=== PATIENT | female | born 1940 | race Caucasian/White ===

== ENCOUNTER 2017-04-03 21:06 | Inpatient (IN) | payer MEDICARE, BC ==
[~2017-04-03] VITALS: Ht 165.1 cm; Wt 61.2 kg
[~2017-04-03 21:06] MED LIST: ALBU90OI; ALBU90OI6 INH; BAYER CHEWABLE81 MG PO; BUDESONIDE8.43 ML NS; COUGH MED; Crutch1 EACH MISC; DELTASONE20 MG PO; DILTIAZEM PO; DOXA4 PO; ESCI10; HYDGUAL120 PO; IBUP600 PO; LISI5 PO; LORA1 PO; LOTREL; METO50 PO; MIRT15 PO; MOXI400; Omeprazole20 M1 PO; Ventolin/Prove6.7 GM INH; XARELTO15 MG PO
[2017-04-03 21:34] LABS: BASOPHILS ABSOLUTE AUTO 0.02 K/mm3 (0.00-0.23); BASOPHILS PERCENT AUTO 0 % (0-2); EOSINOPHILS ABSOLUTE AUTO 0.24 K/mm3 (0.00-0.68); EOSINOPHILS PERCENT AUTO 4 % (0-6); Hematocrit 34.7 % (33.0-51.0); Hemoglobin 11.5 g/dL (11.5-16.0); IMMATURE GRAN ABSOLUTE AUTO 0.01 K/mm3 (0.00-0.10); IMMATURE GRAN PERCENT AUTO 0 % (0-1); LYMPHOCYTES ABSOLUTE AUTO 1.88 K/mm3 (0.84-5.20); LYMPHOCYTES PERCENT AUTO 30 % (21-46); MONOCYTES ABSOLUTE AUTO 0.73 K/mm3 (0.16-1.47); MONOCYTES PERCENT AUTO 12 % (4-13); Mean Corpuscular HGB 32.8 pg (26.0-34.0); Mean Corpuscular HGB Conc 33.1 g/dL (31.5-36.5); Mean Corpuscular Volume 99 fL (80-100); Mean Platelet Volume 9.2 fL (9.1-12.4); NEUTROPHILS ABSOLUTE AUTO 3.42 K/mm3 (1.96-9.15); NEUTROPHILS PERCENT AUTO 54 % (41-73); Platelet Count 380 K/mm3 (150-400); RDW Coefficient Variation 14.1 % (11.7-14.2); RDW Standard Deviation 50.2 fL (35.1-46.3); Red Blood Cell Count 3.51 M/mm3 (3.80-5.20)
[2017-04-03 21:34] LABS: Base Excess Venous 5.9 mmol/L; Bicarbonate Venous 30.1 mmol/L (24.0-30.0); PCO2 Venous 30.5 mmHg (38-42); PO2 Venous 134 mmHg (38-42); pH Blood Venous 7.57 (7.34-7.37)
[2017-04-03 21:55] LABS: Alanine Aminotransfer (ALT/SGP 22 U/L (12-78); Albumin, Blood 2.8 g/dL (3.4-5.0); Albumin/Globulin Ratio 0.7 (0.8-1.8); Alk Phos 132 U/L (50-136); Anion Gap 7 mmol/L (6-16); Aspartate Aminotrans (AST/SGOT 19 U/L (12-37); Bilirubin, Total 0.3 mg/dL (0.1-1.0); Blood Urea Nitrogen 18 mg/dL (8-24); Bun/Creatinine Ratio 26.5 (12.0-20.0); CO2, Blood 31 mmol/L (21-32); Calcium, Blood 8.9 mg/dL (8.5-10.1); Chloride, Blood 98 mmol/L (98-108); Creatinine, Blood 0.68 mg/dL (0.40-1.00); Glomerular Filtration Rate >60 (60-); Glucose, Blood 97 mg/dL (70-99); Potassium, Blood 4.7 mmol/L (3.5-5.5); Sodium, Blood 136 mmol/L (136-145); Total Protein, Blood 6.8 g/dL (6.4-8.2); Troponin I 0.015 ng/mL (0.000-0.040)
[2017-04-03 22:55] LABS: Influenza A Negative (NEGATIVE); Influenza B Negative (NEGATIVE)
[2017-04-04 06:04] LABS: BASOPHILS ABSOLUTE AUTO 0.01 K/mm3 (0.00-0.23); BASOPHILS PERCENT AUTO 0 % (0-2); EOSINOPHILS ABSOLUTE AUTO 0.17 K/mm3 (0.00-0.68); EOSINOPHILS PERCENT AUTO 3 % (0-6); Hematocrit 32.8 % (33.0-51.0); Hemoglobin 10.5 g/dL (11.5-16.0); IMMATURE GRAN ABSOLUTE AUTO 0.02 K/mm3 (0.00-0.10); IMMATURE GRAN PERCENT AUTO 0 % (0-1); LYMPHOCYTES ABSOLUTE AUTO 1.06 K/mm3 (0.84-5.20); LYMPHOCYTES PERCENT AUTO 21 % (21-46); MONOCYTES ABSOLUTE AUTO 0.77 K/mm3 (0.16-1.47); MONOCYTES PERCENT AUTO 15 % (4-13); Mean Corpuscular HGB 32.6 pg (26.0-34.0); Mean Platelet Volume 9.3 fL (9.1-12.4); NEUTROPHILS ABSOLUTE AUTO 3.06 K/mm3 (1.96-9.15); NEUTROPHILS PERCENT AUTO 60 % (41-73); Platelet Count 401 K/mm3 (150-400); RDW Coefficient Variation 14.4 % (11.7-14.2); RDW Standard Deviation 53.3 fL (35.1-46.3); Red Blood Cell Count 3.22 M/mm3 (3.80-5.20); White Blood Cell Count 5.09 K/mm3 (4.00-11.30)
[2017-04-04 06:05] LABS: Mean Corpuscular Volume 102 fL (80-100)
[2017-04-04 06:28] LABS: Alanine Aminotransfer (ALT/SGP 19 U/L (12-78); Albumin, Blood 2.6 g/dL (3.4-5.0); Albumin/Globulin Ratio 0.7 (0.8-1.8); Alk Phos 125 U/L (50-136); Anion Gap 4 mmol/L (6-16); Aspartate Aminotrans (AST/SGOT 17 U/L (12-37); Bilirubin, Total 0.5 mg/dL (0.1-1.0); Blood Urea Nitrogen 16 mg/dL (8-24); Bun/Creatinine Ratio 22.5 (12.0-20.0); CO2, Blood 34 mmol/L (21-32); Calcium, Blood 8.7 mg/dL (8.5-10.1); Chloride, Blood 99 mmol/L (98-108); Creatinine, Blood 0.71 mg/dL (0.40-1.00); Globulin, Blood 3.6 g/dL (2.2-4.0); Glomerular Filtration Rate >60 (60-); Glucose, Blood 109 mg/dL (70-99); Potassium, Blood 4.7 mmol/L (3.5-5.5); Sodium, Blood 137 mmol/L (136-145); Total Protein, Blood 6.2 g/dL (6.4-8.2)
[2017-04-05 05:08] LABS: BASOPHILS PERCENT AUTO 0 % (0-2); EOSINOPHILS PERCENT AUTO 0 % (0-6); Hemoglobin 11.3 g/dL (11.5-16.0); IMMATURE GRAN PERCENT AUTO 0 % (0-1); LYMPHOCYTES ABSOLUTE AUTO 0.53 K/mm3 (0.84-5.20); LYMPHOCYTES PERCENT AUTO 10 % (21-46); MONOCYTES PERCENT AUTO 2 % (4-13); Mean Corpuscular HGB 32.9 pg (26.0-34.0); Mean Corpuscular HGB Conc 32.3 g/dL (31.5-36.5); Mean Corpuscular Volume 102 fL (80-100); Mean Platelet Volume 9.3 fL (9.1-12.4); NEUTROPHILS ABSOLUTE AUTO 4.67 K/mm3 (1.96-9.15); NEUTROPHILS PERCENT AUTO 88 % (41-73); Platelet Count 420 K/mm3 (150-400); RDW Coefficient Variation 14.4 % (11.7-14.2); RDW Standard Deviation 53.2 fL (35.1-46.3); Red Blood Cell Count 3.43 M/mm3 (3.80-5.20)
[2017-04-05 05:36] LABS: Magnesium, Blood 1.7 mg/dL (1.6-2.4)
[2017-04-05 06:03] LABS: Anion Gap 7 mmol/L (6-16); Blood Urea Nitrogen 30 mg/dL (8-24); Bun/Creatinine Ratio 36.1 (12.0-20.0); CO2, Blood 30 mmol/L (21-32); Calcium, Blood 8.9 mg/dL (8.5-10.1); Chloride, Blood 97 mmol/L (98-108); Creatinine, Blood 0.83 mg/dL (0.40-1.00); Glomerular Filtration Rate >60 (60-); Glucose, Blood 190 mg/dL (70-99); Potassium, Blood 4.9 mmol/L (3.5-5.5); Sodium, Blood 134 mmol/L (136-145)
[2017-04-06 05:25] LABS: Anion Gap 5 mmol/L (6-16); Blood Urea Nitrogen 30 mg/dL (8-24); Bun/Creatinine Ratio 34.3 (12.0-20.0); CO2, Blood 32 mmol/L (21-32); Calcium, Blood 8.5 mg/dL (8.5-10.1); Chloride, Blood 97 mmol/L (98-108); Creatinine, Blood 0.87 mg/dL (0.40-1.00); Glomerular Filtration Rate >60 (60-); Glucose, Blood 145 mg/dL (70-99); Magnesium, Blood 1.8 mg/dL (1.6-2.4); Potassium, Blood 4.3 mmol/L (3.5-5.5); Sodium, Blood 134 mmol/L (136-145)
[2017-04-07 04:16] LABS: Anion Gap 6 mmol/L (6-16); Blood Urea Nitrogen 32 mg/dL (8-24); Bun/Creatinine Ratio 42.4 (12.0-20.0); CO2, Blood 32 mmol/L (21-32); Calcium, Blood 8.6 mg/dL (8.5-10.1); Chloride, Blood 96 mmol/L (98-108); Creatinine, Blood 0.75 mg/dL (0.40-1.00); Glomerular Filtration Rate >60 (60-); Glucose, Blood 139 mg/dL (70-99); Sodium, Blood 134 mmol/L (136-145)
[2017-04-07 04:23] LABS: Digoxin (Lanoxin) 1.28 ug/mL (0.80-2.00)
[2017-04-08] MEDS ORDERED: ACET325 PO (10:01)
[2017-04-08] MEDS ORDERED: ROBITUSSIN COU237 ML PO (10:02)
[2017-04-08] MEDS ORDERED: DIGOX125 MCG PO (10:03)
[2017-04-08] MEDS ORDERED: DELTASONE20 MG PO (10:05)
[2017-04-08] MEDS ORDERED: CEFP200 PO (10:10)
[2017-04-08] MEDS ORDERED: ACIDOPHILUS1 EAC1 PO (10:12)
[2017-04-08] MEDS ORDERED: LEVO750 PO (10:14)
[2017-05-15] MEDS ORDERED: Amiodarone HCl400 MG PO (10:40)
[2017-05-15] MEDS ORDERED: AMLO5 PO (10:40)
[2017-08-31] MEDS ORDERED: QVAR REDIHALE10.6 G1 INH (13:13)
[2017-08-31] MEDS ORDERED: MAGNESIUM400 MG PO (13:13)
[2017-08-31] MEDS ORDERED: MAGOXI400 PO (13:14)
[2017-10-23] MEDS ORDERED: DILT120 PO (05:21)
[2017-10-23] MEDS ORDERED: QVAR REDIHALE10.6 G1 INH (05:22)
[2017-10-25] MEDS ORDERED: DILT120 PO (13:37)
[2017-12-20] MEDS ORDERED: PRED10 PO (12:11)
[2018-01-30] MEDS ORDERED: Augmentin 875-1 EACH PO (09:25)
== END 2017-04-08 11:34 | disposition home health service (06) | DRG 193 ==
LOC: ER 21:06 → ICUW 04-04 02:50 → PCU 04-04 16:30
PROVIDERS: Emergency Medicine; Internal Medicine
PROC: 5A09357 Assistance with Respiratory Ventilation, Less than 24 Consecutive Hours, Continuous Positive Airway Pressure (ICD-10-PCS; principal; 2017-04-04)
DX: J18.9 Pneumonia, unspecified organism (principal); J96.21 Acute and chronic respiratory failure with hypoxia; G62.9 Polyneuropathy, unspecified; I50.32 Chronic diastolic (congestive) heart failure; I48.91 Unspecified atrial fibrillation; Z99.81 Dependence on supplemental oxygen; J91.8 Pleural effusion in other conditions classified elsewhere; J44.0 Chronic obstructive pulmonary disease with (acute) lower respiratory infection; J44.1 Chronic obstructive pulmonary disease with (acute) exacerbation; M19.90 Unspecified osteoarthritis, unspecified site; R53.1 Weakness; F41.9 Anxiety disorder, unspecified; I35.1 Nonrheumatic aortic (valve) insufficiency; Z79.01 Long term (current) use of anticoagulants; Z79.82 Long term (current) use of aspirin; Z79.51 Long term (current) use of inhaled steroids; Z79.52 Long term (current) use of systemic steroids; Z79.899 Other long term (current) drug therapy
CPT/HCPCS: 36415; 71045; 71046; 76604; 80048; 80053; 80162; 82803; 83735; 83880; 84484; 85025; 87040; 87804; 93005; 93010; 93970; 94640; 94660; 94760; 94762; 96374; 96376; 97162; 99285; G8978; G8979; J0696; J1956; J2930; J3475; J7050

== ENCOUNTER 2017-04-13 20:44 | Emergency (ER) | payer MEDICARE, BC ==
[~2017-04-13] VITALS: Ht 160 cm; Wt 65.8 kg
[~2017-04-13 20:44] MED LIST changes: +ACET325 PO; +ACIDOPHILUS1 EAC1 PO; +CEFP200 PO; +DIGOX125 MCG PO; +LEVO750 PO; +ROBITUSSIN COU237 ML PO
[2017-04-13 21:48] LABS: BASOPHILS ABSOLUTE AUTO 0.01 K/mm3 (0.00-0.23); BASOPHILS PERCENT AUTO 0 % (0-2); EOSINOPHILS ABSOLUTE AUTO 0.01 K/mm3 (0.00-0.68); EOSINOPHILS PERCENT AUTO 0 % (0-6); Hematocrit 36.2 % (33.0-51.0); Hemoglobin 12.6 g/dL (11.5-16.0); IMMATURE GRAN ABSOLUTE AUTO 0.14 K/mm3 (0.00-0.10); IMMATURE GRAN PERCENT AUTO 1 % (0-1); LYMPHOCYTES ABSOLUTE AUTO 1.06 K/mm3 (0.84-5.20); LYMPHOCYTES PERCENT AUTO 8 % (21-46); MONOCYTES ABSOLUTE AUTO 1.06 K/mm3 (0.16-1.47); MONOCYTES PERCENT AUTO 8 % (4-13); Mean Corpuscular HGB 33.2 pg (26.0-34.0); Mean Corpuscular HGB Conc 34.8 g/dL (31.5-36.5); Mean Platelet Volume 9.3 fL (9.1-12.4); NEUTROPHILS ABSOLUTE AUTO 10.46 K/mm3 (1.96-9.15); NEUTROPHILS PERCENT AUTO 82 % (41-73); Platelet Count 382 K/mm3 (150-400); RDW Coefficient Variation 14.3 % (11.7-14.2); RDW Standard Deviation 50.2 fL (35.1-46.3); Red Blood Cell Count 3.79 M/mm3 (3.80-5.20); White Blood Cell Count 12.74 K/mm3 (4.00-11.30)
[2017-04-13 21:53] LABS: Mean Corpuscular Volume 96 fL (80-100)
[2017-04-13 22:01] LABS: Alanine Aminotransfer (ALT/SGP 57 U/L (12-78); Albumin, Blood 2.8 g/dL (3.4-5.0); Albumin/Globulin Ratio 0.9 (0.8-1.8); Alk Phos 82 U/L (50-136); Anion Gap 4 mmol/L (6-16); Aspartate Aminotrans (AST/SGOT 27 U/L (12-37); Bilirubin, Total 0.4 mg/dL (0.1-1.0); Blood Urea Nitrogen 24 mg/dL (8-24); CO2, Blood 40 mmol/L (21-32); Calcium, Blood 9.2 mg/dL (8.5-10.1); Chloride, Blood 88 mmol/L (98-108); Creatinine, Blood 0.71 mg/dL (0.40-1.00); Glomerular Filtration Rate >60 (60-); Glucose, Blood 106 mg/dL (70-99); Potassium, Blood 4.4 mmol/L (3.5-5.5); Sodium, Blood 132 mmol/L (136-145); Total Protein, Blood 5.8 g/dL (6.4-8.2)
[2017-04-13 22:02] LABS: International Normalized Ratio 1.52
[2017-04-13] MEDS ORDERED: Colace100 MG PO (23:31)
[2017-05-15] MEDS ORDERED: AMLO5 PO (10:40)
[2017-05-15] MEDS ORDERED: Amiodarone HCl400 MG PO (10:40)
[2017-08-31] MEDS ORDERED: MAGNESIUM400 MG PO (13:13)
[2017-08-31] MEDS ORDERED: QVAR REDIHALE10.6 G1 INH (13:13)
[2017-08-31] MEDS ORDERED: MAGOXI400 PO (13:14)
[2017-10-23] MEDS ORDERED: DILT120 PO (05:21)
[2017-10-23] MEDS ORDERED: QVAR REDIHALE10.6 G1 INH (05:22)
[2017-10-25] MEDS ORDERED: DILT120 PO (13:37)
[2017-12-20] MEDS ORDERED: PRED10 PO (12:11)
[2018-01-30] MEDS ORDERED: Augmentin 875-1 EACH PO (09:25)
== END 2017-04-13 23:52 | disposition home or self-care (01) ==
LOC: ER 20:44
PROVIDERS: Emergency Medicine
DX: K59.00 Constipation, unspecified (principal); J44.9 Chronic obstructive pulmonary disease, unspecified; Z79.899 Other long term (current) drug therapy; Z79.52 Long term (current) use of systemic steroids
CPT/HCPCS: 74018; 80053; 82272; 85025; 85610; 85730; 99283

== ENCOUNTER 2017-04-26 06:51 | Emergency (ER) | payer MEDICARE, BC ==
[~2017-04-26] VITALS: Ht 165.1 cm; Wt 59.0 kg
[~2017-04-26 06:51] MED LIST changes: +Colace100 MG PO
[2017-04-26 07:09] LABS: PCO2 Arterial 48.9 mmHg (35-45); PO2 Arterial 85.9 mmHg (80-100); pH Blood Arterial 7.47 (7.35-7.45)
[2017-04-26 07:10] LABS: BASOPHILS ABSOLUTE AUTO 0.02 K/mm3 (0.00-0.23); BASOPHILS PERCENT AUTO 0 % (0-2); EOSINOPHILS ABSOLUTE AUTO 0.22 K/mm3 (0.00-0.68); EOSINOPHILS PERCENT AUTO 2 % (0-6); Hematocrit 29.3 % (33.0-51.0); IMMATURE GRAN ABSOLUTE AUTO 0.04 K/mm3 (0.00-0.10); IMMATURE GRAN PERCENT AUTO 0 % (0-1); LYMPHOCYTES ABSOLUTE AUTO 0.97 K/mm3 (0.84-5.20); LYMPHOCYTES PERCENT AUTO 8 % (21-46); MONOCYTES ABSOLUTE AUTO 0.49 K/mm3 (0.16-1.47); MONOCYTES PERCENT AUTO 4 % (4-13); Mean Corpuscular HGB 32.9 pg (26.0-34.0); Mean Corpuscular HGB Conc 34.1 g/dL (31.5-36.5); Mean Corpuscular Volume 96 fL (80-100); Mean Platelet Volume 9.4 fL (9.1-12.4); NEUTROPHILS ABSOLUTE AUTO 10.15 K/mm3 (1.96-9.15); NEUTROPHILS PERCENT AUTO 85 % (41-73); Platelet Count 286 K/mm3 (150-400); RDW Coefficient Variation 15.7 % (11.7-14.2); RDW Standard Deviation 54.8 fL (35.1-46.3); Red Blood Cell Count 3.04 M/mm3 (3.80-5.20); White Blood Cell Count 11.89 K/mm3 (4.00-11.30)
[2017-04-26 07:32] LABS: Anion Gap 3 mmol/L (6-16); Blood Urea Nitrogen 22 mg/dL (8-24); Bun/Creatinine Ratio 37.6 (12.0-20.0); CO2, Blood 35 mmol/L (21-32); Calcium, Blood 8.9 mg/dL (8.5-10.1); Chloride, Blood 96 mmol/L (98-108); Creatinine, Blood 0.59 mg/dL (0.40-1.00); Glomerular Filtration Rate >60 (60-); Glucose, Blood 104 mg/dL (70-99); Potassium, Blood 4.6 mmol/L (3.5-5.5); Sodium, Blood 134 mmol/L (136-145); Troponin I 0.029 ng/mL (0.000-0.040)
[2017-04-26 07:43] LABS: Digoxin (Lanoxin) 0.95 ug/mL (0.80-2.00)
[2017-04-26 08:01] LABS: International Normalized Ratio 1.21; Prothrombin Time Results 12.7 Sec (9.7-11.5)
[2017-04-26 08:23] LABS: Source, Urine Catheter
[2017-04-26 08:30] LABS: Bilirubin, Urine Neg (Neg); Blood, Urine 2+ (Neg); Glucose Qualitative, Urine Neg (Neg); Ketones, Urine Neg (Neg); Leukocyte Esterase, Urine Neg (Neg); Nitrite, Urine Neg (Neg); Protein, Urine 3+ (Neg); Specific Gravity, Urine 1.015 (1.003-1.022); Urobilinogen, Urine NORM (Normal)
[2017-04-26 08:40] LABS: Appearance, Urine Clear (Clear); Color, Urine Yellow (P-Yellow)
[2017-04-26 08:43] LABS: Squamous Epithelial Cells Few /hpf (Few)
[2017-04-26 08:45] LABS: Calcium Oxalate Crystals Rare /hpf
[2017-04-26 08:48] LABS: White Blood Cells, Urine 0-2 /hpf (0-5)
[2017-04-26 08:50] LABS: Bacteria Mod /hpf
[2017-04-26] MEDS ORDERED: Prednisone20 MG PO (11:18)
[2017-05-15] MEDS ORDERED: Amiodarone HCl400 MG PO (10:40)
[2017-05-15] MEDS ORDERED: AMLO5 PO (10:40)
[2017-08-31] MEDS ORDERED: QVAR REDIHALE10.6 G1 INH (13:13)
[2017-08-31] MEDS ORDERED: MAGNESIUM400 MG PO (13:13)
[2017-08-31] MEDS ORDERED: MAGOXI400 PO (13:14)
[2017-10-23] MEDS ORDERED: DILT120 PO (05:21)
[2017-10-23] MEDS ORDERED: QVAR REDIHALE10.6 G1 INH (05:22)
[2017-10-25] MEDS ORDERED: DILT120 PO (13:37)
[2017-12-20] MEDS ORDERED: PRED10 PO (12:11)
[2018-01-30] MEDS ORDERED: Augmentin 875-1 EACH PO (09:25)
== END 2017-04-26 12:10 | disposition home or self-care (01) ==
LOC: ER 06:51
PROVIDERS: Emergency Medicine
DX: J44.1 Chronic obstructive pulmonary disease with (acute) exacerbation (principal); I48.91 Unspecified atrial fibrillation; F41.9 Anxiety disorder, unspecified; Z79.899 Other long term (current) drug therapy; Z79.52 Long term (current) use of systemic steroids
CPT/HCPCS: 36415; 36600; 71045; 80048; 80162; 81001; 82803; 83605; 83880; 84484; 85025; 85610; 87040; 87086; 93005; 93010; 94644; 96361; 96374; 96375; 99283; J2930; J7030

== ENCOUNTER 2017-05-08 13:07 | Emergency (ER) | payer MEDICARE, BC ==
[~2017-05-08] VITALS: Ht 165.1 cm; Wt 59.0 kg
[~2017-05-08 13:07] MED LIST changes: +Prednisone20 MG PO
[2017-05-15] MEDS ORDERED: Amiodarone HCl400 MG PO (10:40)
[2017-05-15] MEDS ORDERED: AMLO5 PO (10:40)
[2017-08-31] MEDS ORDERED: MAGNESIUM400 MG PO (13:13)
[2017-08-31] MEDS ORDERED: QVAR REDIHALE10.6 G1 INH (13:13)
[2017-08-31] MEDS ORDERED: MAGOXI400 PO (13:14)
[2017-10-23] MEDS ORDERED: DILT120 PO (05:21)
[2017-10-23] MEDS ORDERED: QVAR REDIHALE10.6 G1 INH (05:22)
[2017-10-25] MEDS ORDERED: DILT120 PO (13:37)
[2017-12-20] MEDS ORDERED: PRED10 PO (12:11)
[2018-01-30] MEDS ORDERED: Augmentin 875-1 EACH PO (09:25)
== END 2017-05-08 15:50 | disposition home or self-care (01) ==
LOC: ER 13:07
DX: N64.89 Other specified disorders of breast (principal); I48.91 Unspecified atrial fibrillation; J44.9 Chronic obstructive pulmonary disease, unspecified; Z79.899 Other long term (current) drug therapy; Z87.01 Personal history of pneumonia (recurrent)
CPT/HCPCS: 99282

== ENCOUNTER 2017-05-12 14:23 | Emergency (ER) | payer MEDICARE, BC ==
[~2017-05-12] VITALS: Ht 165.1 cm; Wt 59.0 kg
[2017-05-12] MEDS ORDERED: Amiodarone HCl400 MG PO (14:52)
[2017-05-12] MEDS ORDERED: AMLO5 PO (14:52)
[2017-05-12 15:42] LABS: BASOPHILS ABSOLUTE AUTO 0.01 K/mm3 (0.00-0.23); BASOPHILS PERCENT AUTO 0 % (0-2); EOSINOPHILS PERCENT AUTO 0 % (0-6); Hematocrit 23.3 % (33.0-51.0); Hemoglobin 7.2 g/dL (11.5-16.0); IMMATURE GRAN ABSOLUTE AUTO 0.06 K/mm3 (0.00-0.10); IMMATURE GRAN PERCENT AUTO 1 % (0-1); LYMPHOCYTES ABSOLUTE AUTO 0.55 K/mm3 (0.84-5.20); LYMPHOCYTES PERCENT AUTO 8 % (21-46); MONOCYTES ABSOLUTE AUTO 0.24 K/mm3 (0.16-1.47); MONOCYTES PERCENT AUTO 3 % (4-13); Mean Corpuscular HGB 30.9 pg (26.0-34.0); Mean Corpuscular HGB Conc 30.9 g/dL (31.5-36.5); Mean Corpuscular Volume 100 fL (80-100); Mean Platelet Volume 8.9 fL (9.1-12.4); NEUTROPHILS ABSOLUTE AUTO 6.43 K/mm3 (1.96-9.15); NEUTROPHILS PERCENT AUTO 88 % (41-73); NRBC ABSOLUTE 0.05 K/mm3 (0.00-0.02); NRBC Auto 0.7 /100 WBC (0.0-0.2); Platelet Count 570 K/mm3 (150-400); RDW Coefficient Variation 17.6 % (11.7-14.2); RDW Standard Deviation 61.9 fL (35.1-46.3); Red Blood Cell Count 2.33 M/mm3 (3.80-5.20); White Blood Cell Count 7.29 K/mm3 (4.00-11.30)
[2017-05-12 15:56] LABS: Magnesium, Blood 1.5 mg/dL (1.6-2.4)
[2017-05-12 16:09] LABS: International Normalized Ratio 1.2; Prothrombin Time Results 12.5 Sec (9.7-11.5)
[2017-05-12 16:32] LABS: Anion Gap 8 mmol/L (6-16); Blood Urea Nitrogen 26 mg/dL (8-24); Bun/Creatinine Ratio 33.5 (12.0-20.0); CO2, Blood 31 mmol/L (21-32); Chloride, Blood 99 mmol/L (98-108); Creatinine, Blood 0.78 mg/dL (0.40-1.00); Glomerular Filtration Rate >60 (60-); Glucose, Blood 146 mg/dL (70-99); Sodium, Blood 138 mmol/L (136-145)
[2017-05-12] MEDS ORDERED: DILT180ER PO (16:45)
[2017-05-12] MEDS ORDERED: RHINOCORT ALL8.43 ML (16:46)
[2017-05-12] MEDS ORDERED: ALBU90OI61 INH (16:47)
[2017-05-12] MEDS ORDERED: DIGOX125 MCG PO (16:48)
[2017-05-12] MEDS ORDERED: PRED20 PO (16:49)
[2017-05-12] MEDS ORDERED: EQ SENNA-S TAB1 EACH PO (16:49)
[2017-05-12] MEDS ORDERED: Aspirin EC81 MG (16:50)
[2017-05-15] MEDS ORDERED: Amiodarone HCl400 MG PO (10:40)
[2017-05-15] MEDS ORDERED: AMLO5 PO (10:40)
[2017-08-31] MEDS ORDERED: MAGNESIUM400 MG PO (13:13)
[2017-08-31] MEDS ORDERED: QVAR REDIHALE10.6 G1 INH (13:13)
[2017-08-31] MEDS ORDERED: MAGOXI400 PO (13:14)
[2017-10-23] MEDS ORDERED: DILT120 PO (05:21)
[2017-10-23] MEDS ORDERED: QVAR REDIHALE10.6 G1 INH (05:22)
[2017-10-25] MEDS ORDERED: DILT120 PO (13:37)
[2017-12-20] MEDS ORDERED: PRED10 PO (12:11)
[2018-01-30] MEDS ORDERED: Augmentin 875-1 EACH PO (09:25)
== END 2017-05-12 15:54 | disposition home or self-care (01) ==
LOC: ER 14:23
PROVIDERS: Emergency Medicine
DX: I48.92 Unspecified atrial flutter (principal); I48.91 Unspecified atrial fibrillation; J44.9 Chronic obstructive pulmonary disease, unspecified; Z87.01 Personal history of pneumonia (recurrent); Z87.891 Personal history of nicotine dependence
CPT/HCPCS: 36415; 80048; 83735; 85025; 85610; 93005; 93010; 99283; J0153; J7030

== ENCOUNTER 2017-05-17 08:54 | Inpatient (IN) | payer MEDICARE, BC ==
[~2017-05-17] VITALS: Ht 152.4 cm; Wt 58.2 kg
[~2017-05-17 08:54] MED LIST changes: +ALBU90OI61 INH; +AMLO5 PO; +Amiodarone HCl400 MG PO; +Aspirin EC81 MG; +DILT180ER PO; +EQ SENNA-S TAB1 EACH PO; +PRED20 PO; +RHINOCORT ALL8.43 ML
[2017-05-17 09:20] LABS: BASOPHILS ABSOLUTE AUTO 0.01 K/mm3 (0.00-0.23); BASOPHILS PERCENT AUTO 0 % (0-2); EOSINOPHILS ABSOLUTE AUTO 0.05 K/mm3 (0.00-0.68); EOSINOPHILS PERCENT AUTO 0 % (0-6); Hemoglobin 7.1 g/dL (11.5-16.0); IMMATURE GRAN ABSOLUTE AUTO 0.09 K/mm3 (0.00-0.10); IMMATURE GRAN PERCENT AUTO 1 % (0-1); LYMPHOCYTES ABSOLUTE AUTO 0.93 K/mm3 (0.84-5.20); LYMPHOCYTES PERCENT AUTO 6 % (21-46); MONOCYTES ABSOLUTE AUTO 0.68 K/mm3 (0.16-1.47); MONOCYTES PERCENT AUTO 5 % (4-13); Mean Corpuscular HGB 30.6 pg (26.0-34.0); Mean Corpuscular HGB Conc 30.9 g/dL (31.5-36.5); Mean Corpuscular Volume 99 fL (80-100); Mean Platelet Volume 8.7 fL (9.1-12.4); NEUTROPHILS PERCENT AUTO 88 % (41-73); NRBC ABSOLUTE 0.02 K/mm3 (0.00-0.02); NRBC Auto 0.1 /100 WBC (0.0-0.2); Platelet Count 555 K/mm3 (150-400); RDW Coefficient Variation 17.1 % (11.7-14.2); RDW Standard Deviation 61.2 fL (35.1-46.3); Red Blood Cell Count 2.32 M/mm3 (3.80-5.20); White Blood Cell Count 14.86 K/mm3 (4.00-11.30)
[2017-05-17 09:38] LABS: Alanine Aminotransfer (ALT/SGP 21 U/L (12-78); Albumin, Blood 2.8 g/dL (3.4-5.0); Albumin/Globulin Ratio 0.7 (0.8-1.8); Alk Phos 68 U/L (50-136); Anion Gap 4 mmol/L (6-16); Aspartate Aminotrans (AST/SGOT 12 U/L (12-37); Bilirubin, Total 0.3 mg/dL (0.1-1.0); Blood Urea Nitrogen 22 mg/dL (8-24); Bun/Creatinine Ratio 29.9 (12.0-20.0); CO2, Blood 33 mmol/L (21-32); Calcium, Blood 9.3 mg/dL (8.5-10.1); Chloride, Blood 99 mmol/L (98-108); Creatinine, Blood 0.74 mg/dL (0.40-1.00); Globulin, Blood 4.2 g/dL (2.2-4.0); Glomerular Filtration Rate >60 (60-); Glucose, Blood 132 mg/dL (70-99); Potassium, Blood 4.2 mmol/L (3.5-5.5); Sodium, Blood 136 mmol/L (136-145); Troponin I 0.044 ng/mL (0.000-0.040)
[2017-05-17 10:08] LABS: PO2 Arterial 70.6 mmHg (80-100); pH Blood Arterial 7.42 (7.35-7.45)
[2017-05-18 04:19] LABS: Hematocrit 19.5 % (33.0-51.0); Mean Corpuscular HGB 29.6 pg (26.0-34.0); Mean Corpuscular HGB Conc 30.8 g/dL (31.5-36.5); Mean Platelet Volume 8.5 fL (9.1-12.4); NRBC ABSOLUTE 0.02 K/mm3 (0.00-0.02); NRBC Auto 0.3 /100 WBC (0.0-0.2); Platelet Count 469 K/mm3 (150-400); RDW Coefficient Variation 16.9 % (11.7-14.2); RDW Standard Deviation 58.2 fL (35.1-46.3); Red Blood Cell Count 2.03 M/mm3 (3.80-5.20)
[2017-05-18 04:26] LABS: Mean Corpuscular Volume 96 fL (80-100)
[2017-05-18 04:33] LABS: International Normalized Ratio 1.39; Prothrombin Time Results 14.6 Sec (9.7-11.5)
[2017-05-18 04:44] LABS: Anion Gap 7 mmol/L (6-16); Blood Urea Nitrogen 28 mg/dL (8-24); Bun/Creatinine Ratio 31.3 (12.0-20.0); CO2, Blood 31 mmol/L (21-32); Calcium, Blood 8.9 mg/dL (8.5-10.1); Chloride, Blood 98 mmol/L (98-108); Creatinine, Blood 0.89 mg/dL (0.40-1.00); Glomerular Filtration Rate >60 (60-); Glucose, Blood 128 mg/dL (70-99); Magnesium, Blood 1.5 mg/dL (1.6-2.4); Phosphorus, Blood 3.2 mg/dL (2.5-4.9); Potassium, Blood 4.1 mmol/L (3.5-5.5); Sodium, Blood 136 mmol/L (136-145)
[2017-05-18 11:08] LABS: Percent Saturation 3.9 % (15.0-50.0)
[2017-05-19 04:58] LABS: Hematocrit 26.7 % (33.0-51.0); Hemoglobin 8.5 g/dL (11.5-16.0); Mean Corpuscular HGB 29.9 pg (26.0-34.0); Mean Corpuscular HGB Conc 31.8 g/dL (31.5-36.5); Mean Corpuscular Volume 94 fL (80-100); Mean Platelet Volume 8.6 fL (9.1-12.4); NRBC ABSOLUTE 0.02 K/mm3 (0.00-0.02); NRBC Auto 0.2 /100 WBC (0.0-0.2); Platelet Count 502 K/mm3 (150-400); RDW Coefficient Variation 17.2 % (11.7-14.2); RDW Standard Deviation 58.3 fL (35.1-46.3); Red Blood Cell Count 2.84 M/mm3 (3.80-5.20); White Blood Cell Count 8.57 K/mm3 (4.00-11.30)
[2017-05-19 05:21] LABS: Anion Gap 8 mmol/L (6-16); Blood Urea Nitrogen 35 mg/dL (8-24); Bun/Creatinine Ratio 40.7 (12.0-20.0); CO2, Blood 30 mmol/L (21-32); Chloride, Blood 100 mmol/L (98-108); Creatinine, Blood 0.86 mg/dL (0.40-1.00); Glomerular Filtration Rate >60 (60-); Glucose, Blood 149 mg/dL (70-99); Magnesium, Blood 1.9 mg/dL (1.6-2.4); Potassium, Blood 4.1 mmol/L (3.5-5.5); Sodium, Blood 138 mmol/L (136-145)
[2017-05-20 05:46] LABS: Hematocrit 24.5 % (33.0-51.0); Hemoglobin 7.9 g/dL (11.5-16.0)
[2017-05-20] MEDS ORDERED: Ferrous Sulfat325 M2 PO (10:42)
[2017-05-20] MEDS ORDERED: CEPH500 PO (10:43)
[2017-05-20] MEDS ORDERED: AZIT500 PO (10:43)
[2017-08-31] MEDS ORDERED: MAGNESIUM400 MG PO (13:13)
[2017-08-31] MEDS ORDERED: QVAR REDIHALE10.6 G1 INH (13:13)
[2017-08-31] MEDS ORDERED: MAGOXI400 PO (13:14)
[2017-10-23] MEDS ORDERED: DILT120 PO (05:21)
[2017-10-23] MEDS ORDERED: QVAR REDIHALE10.6 G1 INH (05:22)
[2017-10-25] MEDS ORDERED: DILT120 PO (13:37)
[2017-12-20] MEDS ORDERED: PRED10 PO (12:11)
[2018-01-30] MEDS ORDERED: Augmentin 875-1 EACH PO (09:25)
== END 2017-05-20 12:00 | disposition home or self-care (01) | DRG 193 ==
LOC: ER 08:54 → ERHOLD 10:00 → MEDS 10:00 → EDBEDREQ 10:54 → PCU 13:00 → MEDS 05-19 16:12 → ENPENDDIS 05-20 10:24 → MEDS 05-20 12:00
PROVIDERS: Family Medicine; Internal Medicine
DX: J18.9 Pneumonia, unspecified organism (principal); J96.21 Acute and chronic respiratory failure with hypoxia; G62.9 Polyneuropathy, unspecified; I50.32 Chronic diastolic (congestive) heart failure; I48.2 Chronic atrial fibrillation; E83.42 Hypomagnesemia; D50.9 Iron deficiency anemia, unspecified; F41.9 Anxiety disorder, unspecified; J96.22 Acute and chronic respiratory failure with hypercapnia; I35.1 Nonrheumatic aortic (valve) insufficiency; J44.9 Chronic obstructive pulmonary disease, unspecified; M19.90 Unspecified osteoarthritis, unspecified site; Z79.52 Long term (current) use of systemic steroids; Z87.01 Personal history of pneumonia (recurrent); Z87.891 Personal history of nicotine dependence
CPT/HCPCS: 36415; 36430; 36600; 71045; 80048; 80053; 82728; 82803; 83540; 83550; 83735; 83880; 84100; 84484; 85014; 85018; 85025; 85027; 85610; 85730; 86850; 86900; 86901; 86923; 92960; 93005; 93010; 94640; 94644; 94760; 96365; 96375; 99285; J0456; J0696; J2060; J2930; J3475; J7030; J7050; J7120; P9016

== ENCOUNTER → 2017-08-08 | Outpatient (CLI) | payer MEDICARE, BC ==
[~2017-08-08] MED LIST changes: +AZIT500 PO; +CEPH500 PO; +Ferrous Sulfat325 M2 PO
== END | disposition home or self-care (01) ==
LOC: PLD 16:33 → LAB SHORT 16:33
DX: D48.5 Neoplasm of uncertain behavior of skin (principal)
CPT/HCPCS: 88305

== ENCOUNTER 2017-08-23 23:41 | Emergency (ER) | payer MEDICARE, BC ==
[~2017-08-23] VITALS: Ht 165.1 cm; Wt 59.0 kg
[2017-08-24 00:11] LABS: BASOPHILS ABSOLUTE AUTO 0.06 K/mm3 (0.00-0.23); BASOPHILS PERCENT AUTO 1 % (0-2); EOSINOPHILS ABSOLUTE AUTO 0.29 K/mm3 (0.00-0.68); EOSINOPHILS PERCENT AUTO 3 % (0-6); Hematocrit 35.5 % (33.0-51.0); Hemoglobin 11.3 g/dL (11.5-16.0); IMMATURE GRAN ABSOLUTE AUTO 0.02 K/mm3 (0.00-0.10); IMMATURE GRAN PERCENT AUTO 0 % (0-1); LYMPHOCYTES ABSOLUTE AUTO 2.53 K/mm3 (0.84-5.20); LYMPHOCYTES PERCENT AUTO 30 % (21-46); MONOCYTES ABSOLUTE AUTO 0.81 K/mm3 (0.16-1.47); MONOCYTES PERCENT AUTO 10 % (4-13); Mean Corpuscular HGB 29.6 pg (26.0-34.0); Mean Corpuscular HGB Conc 31.8 g/dL (31.5-36.5); Mean Corpuscular Volume 93 fL (80-100); Mean Platelet Volume 9.4 fL (9.1-12.4); NEUTROPHILS ABSOLUTE AUTO 4.75 K/mm3 (1.96-9.15); NEUTROPHILS PERCENT AUTO 56 % (41-73); Platelet Count 403 K/mm3 (150-400); RDW Coefficient Variation 18.5 % (11.7-14.2); RDW Standard Deviation 63.4 fL (35.1-46.3); Red Blood Cell Count 3.82 M/mm3 (3.80-5.20); White Blood Cell Count 8.46 K/mm3 (4.00-11.30)
[2017-08-24 00:29] LABS: Alanine Aminotransfer (ALT/SGP 25 U/L (12-78); Albumin, Blood 3.6 g/dL (3.4-5.0); Albumin/Globulin Ratio 0.9 (0.8-1.8); Alk Phos 117 U/L (50-136); Anion Gap 8 mmol/L (6-16); Aspartate Aminotrans (AST/SGOT 27 U/L (12-37); Bilirubin, Total 0.1 mg/dL (0.1-1.0); Blood Urea Nitrogen 26 mg/dL (8-24); Bun/Creatinine Ratio 29.8 (12.0-20.0); CO2, Blood 29 mmol/L (21-32); Calcium, Blood 9.6 mg/dL (8.5-10.1); Chloride, Blood 101 mmol/L (98-108); Creatinine, Blood 0.87 mg/dL (0.40-1.00); Globulin, Blood 4.1 g/dL (2.2-4.0); Glomerular Filtration Rate >60 (60-); Glucose, Blood 96 mg/dL (70-99); Potassium, Blood 4.3 mmol/L (3.5-5.5); Sodium, Blood 138 mmol/L (136-145); Total Protein, Blood 7.7 g/dL (6.4-8.2); Troponin I <0.015 ng/mL (0.000-0.040)
== END 2017-08-24 00:43 | disposition home or self-care (01) ==
LOC: ER 23:41
PROVIDERS: Emergency Medicine
DX: I48.91 Unspecified atrial fibrillation (principal); Z79.899 Other long term (current) drug therapy; Z79.2 Long term (current) use of antibiotics; Z87.01 Personal history of pneumonia (recurrent); Z87.891 Personal history of nicotine dependence
CPT/HCPCS: 36415; 80053; 84484; 85025; 93005; 93010; 99283

== ENCOUNTER 2017-09-01 06:33 | Day surgery (SDC) | payer MEDICARE, BC ==
[~2017-09-01] VITALS: Ht 165.1 cm; Wt 59.1 kg
[~2017-09-01 06:33] MED LIST changes: +MAGNESIUM400 MG PO; +MAGOXI400 PO; +QVAR REDIHALE10.6 G1 INH
== END 2017-09-01 23:10 | disposition home or self-care (01) ==
LOC: MHTC 06:33
PROC: 5A2204Z Restoration of Cardiac Rhythm, Single (ICD-10-PCS; principal; 2017-09-01)
DX: I48.4 Atypical atrial flutter (principal); I48.91 Unspecified atrial fibrillation; J44.9 Chronic obstructive pulmonary disease, unspecified; Z99.81 Dependence on supplemental oxygen; I10 Essential (primary) hypertension; E83.42 Hypomagnesemia
CPT/HCPCS: 92960; 93005; 93010; J7120

== ENCOUNTER 2017-10-10 11:40 | Emergency (ER) | payer MEDICARE, BC ==
[~2017-10-10] VITALS: Ht 165.1 cm; Wt 61.2 kg
[2017-10-10 12:50] LABS: BASOPHILS ABSOLUTE AUTO 0.05 K/mm3 (0.00-0.23); BASOPHILS PERCENT AUTO 1 % (0-2); EOSINOPHILS ABSOLUTE AUTO 0.17 K/mm3 (0.00-0.68); EOSINOPHILS PERCENT AUTO 2 % (0-6); Hematocrit 31.5 % (33.0-51.0); Hemoglobin 9.7 g/dL (11.5-16.0); IMMATURE GRAN ABSOLUTE AUTO 0.04 K/mm3 (0.00-0.10); IMMATURE GRAN PERCENT AUTO 1 % (0-1); LYMPHOCYTES ABSOLUTE AUTO 1.42 K/mm3 (0.84-5.20); LYMPHOCYTES PERCENT AUTO 19 % (21-46); MONOCYTES ABSOLUTE AUTO 0.61 K/mm3 (0.16-1.47); MONOCYTES PERCENT AUTO 8 % (4-13); Mean Corpuscular HGB 30.6 pg (26.0-34.0); Mean Corpuscular HGB Conc 30.8 g/dL (31.5-36.5); Mean Corpuscular Volume 99 fL (80-100); Mean Platelet Volume 9.3 fL (9.1-12.4); NEUTROPHILS ABSOLUTE AUTO 5.34 K/mm3 (1.96-9.15); NEUTROPHILS PERCENT AUTO 70 % (41-73); Platelet Count 352 K/mm3 (150-400); RDW Coefficient Variation 17.2 % (11.7-14.2); RDW Standard Deviation 62.5 fL (35.1-46.3); Red Blood Cell Count 3.17 M/mm3 (3.80-5.20); White Blood Cell Count 7.63 K/mm3 (4.00-11.30)
[2017-10-10 13:30] LABS: Alanine Aminotransfer (ALT/SGP 19 U/L (12-78); Albumin, Blood 3.7 g/dL (3.4-5.0); Alk Phos 115 U/L (50-136); Anion Gap 12 mmol/L (6-16); Aspartate Aminotrans (AST/SGOT 24 U/L (12-37); Bilirubin, Total 0.4 mg/dL (0.1-1.0); Blood Urea Nitrogen 19 mg/dL (8-24); Bun/Creatinine Ratio 21.5 (12.0-20.0); CO2, Blood 26 mmol/L (21-32); Calcium, Blood 9.5 mg/dL (8.5-10.1); Chloride, Blood 100 mmol/L (98-108); Creatinine, Blood 0.88 mg/dL (0.40-1.00); Globulin, Blood 3.7 g/dL (2.2-4.0); Glomerular Filtration Rate >60 (60-); Glucose, Blood 86 mg/dL (70-99); Potassium, Blood 4.5 mmol/L (3.5-5.5); Sodium, Blood 138 mmol/L (136-145); Total Protein, Blood 7.4 g/dL (6.4-8.2); Troponin I <0.015 ng/mL (0.000-0.040)
== END 2017-10-10 12:47 | disposition left against medical advice (07) ==
LOC: ER 11:40
PROVIDERS: Emergency Medicine
DX: Z53.21 Procedure and treatment not carried out due to patient leaving prior to being seen by health care provider (principal)
CPT/HCPCS: 80053; 83880; 84484; 85025; 93005; 93010; 93225; 93226; 99284-25

== ENCOUNTER 2017-10-20 09:26 | Emergency (ER) | payer MEDICARE, BC ==
[~2017-10-20] VITALS: Ht 167.6 cm; Wt 63.5 kg
[2017-10-20 10:15] LABS: BASOPHILS ABSOLUTE AUTO 0.03 K/mm3 (0.00-0.23); BASOPHILS PERCENT AUTO 0 % (0-2); EOSINOPHILS ABSOLUTE AUTO 0.19 K/mm3 (0.00-0.68); EOSINOPHILS PERCENT AUTO 2 % (0-6); Hematocrit 27.3 % (33.0-51.0); Hemoglobin 8.6 g/dL (11.5-16.0); IMMATURE GRAN ABSOLUTE AUTO 0.02 K/mm3 (0.00-0.10); IMMATURE GRAN PERCENT AUTO 0 % (0-1); LYMPHOCYTES ABSOLUTE AUTO 0.96 K/mm3 (0.84-5.20); LYMPHOCYTES PERCENT AUTO 10 % (21-46); MONOCYTES ABSOLUTE AUTO 0.86 K/mm3 (0.16-1.47); MONOCYTES PERCENT AUTO 9 % (4-13); Mean Corpuscular HGB 30.2 pg (26.0-34.0); Mean Corpuscular HGB Conc 31.5 g/dL (31.5-36.5); Mean Platelet Volume 8.9 fL (9.1-12.4); NEUTROPHILS ABSOLUTE AUTO 7.79 K/mm3 (1.96-9.15); NEUTROPHILS PERCENT AUTO 79 % (41-73); Platelet Count 418 K/mm3 (150-400); RDW Coefficient Variation 16.4 % (11.7-14.2); RDW Standard Deviation 57.6 fL (35.1-46.3); Red Blood Cell Count 2.85 M/mm3 (3.80-5.20); White Blood Cell Count 9.85 K/mm3 (4.00-11.30)
[2017-10-20 10:28] LABS: Mean Corpuscular Volume 96 fL (80-100)
[2017-10-20 11:27] LABS: Alanine Aminotransfer (ALT/SGP 14 U/L (12-78); Albumin, Blood 3.2 g/dL (3.4-5.0); Albumin/Globulin Ratio 0.9 (0.8-1.8); Alk Phos 107 U/L (50-136); Anion Gap 8 mmol/L (6-16); Aspartate Aminotrans (AST/SGOT 15 U/L (12-37); Bilirubin, Total 0.3 mg/dL (0.1-1.0); Blood Urea Nitrogen 15 mg/dL (8-24); Bun/Creatinine Ratio 20.3 (12.0-20.0); CO2, Blood 29 mmol/L (21-32); Calcium, Blood 8.9 mg/dL (8.5-10.1); Chloride, Blood 100 mmol/L (98-108); Creatinine, Blood 0.74 mg/dL (0.40-1.00); Globulin, Blood 3.6 g/dL (2.2-4.0); Glomerular Filtration Rate >60 (60-); Glucose, Blood 99 mg/dL (70-99); Magnesium, Blood 1.6 mg/dL (1.6-2.4); Sodium, Blood 137 mmol/L (136-145); Total Protein, Blood 6.8 g/dL (6.4-8.2); Troponin I <0.015 ng/mL (0.000-0.040)
[2017-10-20] MEDS ORDERED: XARELTO15 MG PO (11:55)
[2017-10-20] MEDS ORDERED: SENN187 PO (11:56)
[2017-10-20] MEDS ORDERED: MAGOXI400 PO (11:57)
[2017-10-23] MEDS ORDERED: DILT120 PO (05:21)
[2017-10-23] MEDS ORDERED: QVAR REDIHALE10.6 G1 INH (05:22)
== END 2017-10-20 13:33 | disposition home or self-care (01) ==
LOC: ER 09:26
PROVIDERS: Emergency Medicine
DX: I48.91 Unspecified atrial fibrillation (principal); I48.92 Unspecified atrial flutter; R53.83 Other fatigue; J44.9 Chronic obstructive pulmonary disease, unspecified; Z79.899 Other long term (current) drug therapy
CPT/HCPCS: 36415; 71046; 80053; 83735; 84484; 85025; 93005; 93010; 99285-25

== ENCOUNTER 2017-11-04 02:06 | Inpatient (IN) | payer MEDICARE, BC ==
[~2017-11-04] VITALS: Ht 165.1 cm; Wt 69.3 kg
[~2017-11-04 02:06] MED LIST changes: +DILT120 PO; +SENN187 PO
[2017-11-04] MEDS ORDERED: FURO20 PO (02:28)
[2017-11-04] MEDS ORDERED: POTCHL20ER PO (02:28)
[2017-11-04 02:46] LABS: BASOPHILS ABSOLUTE AUTO 0.04 K/mm3 (0.00-0.23); BASOPHILS PERCENT AUTO 0 % (0-2); EOSINOPHILS ABSOLUTE AUTO 0.39 K/mm3 (0.00-0.68); EOSINOPHILS PERCENT AUTO 3 % (0-6); Hematocrit 23.9 % (33.0-51.0); Hemoglobin 7.7 g/dL (11.5-16.0); IMMATURE GRAN ABSOLUTE AUTO 0.06 K/mm3 (0.00-0.10); IMMATURE GRAN PERCENT AUTO 1 % (0-1); LYMPHOCYTES ABSOLUTE AUTO 1.21 K/mm3 (0.84-5.20); LYMPHOCYTES PERCENT AUTO 10 % (21-46); MONOCYTES ABSOLUTE AUTO 0.82 K/mm3 (0.16-1.47); MONOCYTES PERCENT AUTO 7 % (4-13); Mean Corpuscular HGB 30.6 pg (26.0-34.0); Mean Corpuscular HGB Conc 32.2 g/dL (31.5-36.5); Mean Corpuscular Volume 95 fL (80-100); Mean Platelet Volume 8.5 fL (9.1-12.4); NEUTROPHILS ABSOLUTE AUTO 10.17 K/mm3 (1.96-9.15); NEUTROPHILS PERCENT AUTO 80 % (41-73); Platelet Count 647 K/mm3 (150-400); RDW Coefficient Variation 15.3 % (11.7-14.2); RDW Standard Deviation 53.2 fL (35.1-46.3); Red Blood Cell Count 2.52 M/mm3 (3.80-5.20); White Blood Cell Count 12.69 K/mm3 (4.00-11.30)
[2017-11-04 02:59] LABS: Albumin/Globulin Ratio 0.7 (0.8-1.8); Bilirubin, Total 0.3 mg/dL (0.1-1.0); Bun/Creatinine Ratio 27.7 (12.0-20.0); Calcium, Blood 9.2 mg/dL (8.5-10.1); Creatinine, Blood 1.01 mg/dL (0.40-1.00); Globulin, Blood 4.4 g/dL (2.2-4.0); Potassium, Blood 4.3 mmol/L (3.5-5.5); Total Protein, Blood 7.4 g/dL (6.4-8.2)
[2017-11-04] MEDS ORDERED: Metamucil Smooth1 EA PO (11:35)
[2017-11-05 03:39] LABS: BASOPHILS ABSOLUTE AUTO 0.01 K/mm3 (0.00-0.23); BASOPHILS PERCENT AUTO 0 % (0-2); EOSINOPHILS PERCENT AUTO 0 % (0-6); Hematocrit 22.2 % (33.0-51.0); Hemoglobin 7.1 g/dL (11.5-16.0); IMMATURE GRAN ABSOLUTE AUTO 0.07 K/mm3 (0.00-0.10); IMMATURE GRAN PERCENT AUTO 1 % (0-1); LYMPHOCYTES PERCENT AUTO 6 % (21-46); MONOCYTES ABSOLUTE AUTO 0.18 K/mm3 (0.16-1.47); MONOCYTES PERCENT AUTO 2 % (4-13); Mean Corpuscular HGB 29.8 pg (26.0-34.0); Mean Corpuscular Volume 93 fL (80-100); Mean Platelet Volume 8.6 fL (9.1-12.4); NEUTROPHILS ABSOLUTE AUTO 10.97 K/mm3 (1.96-9.15); NEUTROPHILS PERCENT AUTO 92 % (41-73); Platelet Count 575 K/mm3 (150-400); RDW Coefficient Variation 15.3 % (11.7-14.2); RDW Standard Deviation 51.9 fL (35.1-46.3); Red Blood Cell Count 2.38 M/mm3 (3.80-5.20); White Blood Cell Count 11.93 K/mm3 (4.00-11.30)
[2017-11-05 03:59] LABS: Bun/Creatinine Ratio 36.9 (12.0-20.0); Calcium, Blood 8.7 mg/dL (8.5-10.1); Creatinine, Blood 1.11 mg/dL (0.40-1.00); Magnesium, Blood 1.8 mg/dL (1.6-2.4); Potassium, Blood 4.6 mmol/L (3.5-5.5)
[2017-11-06 07:34] LABS: BASOPHILS ABSOLUTE AUTO 0.01 K/mm3 (0.00-0.23); BASOPHILS PERCENT AUTO 0 % (0-2); EOSINOPHILS PERCENT AUTO 0 % (0-6); Hemoglobin 7.7 g/dL (11.5-16.0); IMMATURE GRAN ABSOLUTE AUTO 0.12 K/mm3 (0.00-0.10); IMMATURE GRAN PERCENT AUTO 1 % (0-1); LYMPHOCYTES ABSOLUTE AUTO 0.44 K/mm3 (0.84-5.20); LYMPHOCYTES PERCENT AUTO 3 % (21-46); MONOCYTES ABSOLUTE AUTO 0.34 K/mm3 (0.16-1.47); MONOCYTES PERCENT AUTO 3 % (4-13); Mean Corpuscular HGB 29.6 pg (26.0-34.0); Mean Corpuscular HGB Conc 32.1 g/dL (31.5-36.5); Mean Corpuscular Volume 92 fL (80-100); Mean Platelet Volume 8.7 fL (9.1-12.4); NEUTROPHILS ABSOLUTE AUTO 12.49 K/mm3 (1.96-9.15); NEUTROPHILS PERCENT AUTO 93 % (41-73); Platelet Count 661 K/mm3 (150-400); RDW Coefficient Variation 15.3 % (11.7-14.2); RDW Standard Deviation 51.3 fL (35.1-46.3)
[2017-11-06 07:56] LABS: Anion Gap 9 mmol/L (6-16); Blood Urea Nitrogen 48 mg/dL (8-24); Bun/Creatinine Ratio 37.2 (12.0-20.0); CO2, Blood 26 mmol/L (21-32); Calcium, Blood 8.2 mg/dL (8.5-10.1); Chloride, Blood 101 mmol/L (98-108); Creatinine, Blood 1.29 mg/dL (0.40-1.00); Glomerular Filtration Rate 43 (60-); Glucose, Blood 132 mg/dL (70-99); Potassium, Blood 4.5 mmol/L (3.5-5.5); Sodium, Blood 136 mmol/L (136-145); Vancomycin, Trough 18.5 ug/mL (5.0-10.0)
[2017-11-06 08:05] LABS: Percent Saturation 15.3 % (15.0-50.0)
[2017-11-06 14:07] LABS: Stool Occult Blood Guaiac 1 Neg (Neg)
[2017-11-07 03:56] LABS: Hematocrit 22.2 % (33.0-51.0); Hemoglobin 7.1 g/dL (11.5-16.0); Mean Corpuscular HGB 29.8 pg (26.0-34.0); Mean Corpuscular Volume 93 fL (80-100); Mean Platelet Volume 8.7 fL (9.1-12.4); NRBC ABSOLUTE 0.02 K/mm3 (0.00-0.02); NRBC Auto 0.1 /100 WBC (0.0-0.2); Platelet Count 582 K/mm3 (150-400); RDW Coefficient Variation 15.6 % (11.7-14.2); RDW Standard Deviation 53.4 fL (35.1-46.3); Red Blood Cell Count 2.38 M/mm3 (3.80-5.20); White Blood Cell Count 14.64 K/mm3 (4.00-11.30)
[2017-11-07 04:26] LABS: Bun/Creatinine Ratio 43.8 (12.0-20.0); Calcium, Blood 8.5 mg/dL (8.5-10.1); Creatinine, Blood 1.28 mg/dL (0.40-1.00); Potassium, Blood 4.9 mmol/L (3.5-5.5)
[2017-11-08 09:21] LABS: Hematocrit 27.1 % (33.0-51.0); Hemoglobin 8.7 g/dL (11.5-16.0); Mean Corpuscular HGB 29.5 pg (26.0-34.0); Mean Corpuscular HGB Conc 32.1 g/dL (31.5-36.5); Mean Corpuscular Volume 92 fL (80-100); Mean Platelet Volume 8.7 fL (9.1-12.4); NRBC ABSOLUTE 0.06 K/mm3 (0.00-0.02); NRBC Auto 0.3 /100 WBC (0.0-0.2); Platelet Count 697 K/mm3 (150-400); RDW Coefficient Variation 15.4 % (11.7-14.2); RDW Standard Deviation 51.5 fL (35.1-46.3); Red Blood Cell Count 2.95 M/mm3 (3.80-5.20); White Blood Cell Count 17.44 K/mm3 (4.00-11.30)
[2017-11-09 08:38] LABS: Hematocrit 28.5 % (33.0-51.0); Hemoglobin 9.3 g/dL (11.5-16.0); Mean Corpuscular HGB 29.7 pg (26.0-34.0); Mean Corpuscular HGB Conc 32.6 g/dL (31.5-36.5); Mean Corpuscular Volume 91 fL (80-100); Mean Platelet Volume 8.6 fL (9.1-12.4); NRBC ABSOLUTE 0.12 K/mm3 (0.00-0.02); NRBC Auto 0.8 /100 WBC (0.0-0.2); Platelet Count 743 K/mm3 (150-400); RDW Coefficient Variation 15.1 % (11.7-14.2); RDW Standard Deviation 49.3 fL (35.1-46.3); Red Blood Cell Count 3.13 M/mm3 (3.80-5.20); White Blood Cell Count 14.13 K/mm3 (4.00-11.30)
[2017-11-09 08:59] LABS: Bun/Creatinine Ratio 41.1 (12.0-20.0); Calcium, Blood 9.8 mg/dL (8.5-10.1); Creatinine, Blood 1.41 mg/dL (0.40-1.00); Potassium, Blood 2.8 mmol/L (3.5-5.5)
[2017-11-10 06:01] LABS: Bun/Creatinine Ratio 52.8 (12.0-20.0); Calcium, Blood 9.6 mg/dL (8.5-10.1); Creatinine, Blood 1.27 mg/dL (0.40-1.00); Potassium, Blood 3.6 mmol/L (3.5-5.5)
[2017-11-11 04:40] LABS: Hematocrit 27.6 % (33.0-51.0); Hemoglobin 8.9 g/dL (11.5-16.0); Mean Corpuscular HGB 29.3 pg (26.0-34.0); Mean Corpuscular HGB Conc 32.2 g/dL (31.5-36.5); Mean Corpuscular Volume 91 fL (80-100); Mean Platelet Volume 8.8 fL (9.1-12.4); Platelet Count 585 K/mm3 (150-400); RDW Standard Deviation 49.1 fL (35.1-46.3); Red Blood Cell Count 3.04 M/mm3 (3.80-5.20); White Blood Cell Count 17.42 K/mm3 (4.00-11.30)
[2017-11-11 04:57] LABS: Bun/Creatinine Ratio 54.1 (12.0-20.0); Calcium, Blood 8.8 mg/dL (8.5-10.1); Creatinine, Blood 1.33 mg/dL (0.40-1.00); Potassium, Blood 3.1 mmol/L (3.5-5.5)
[2017-11-11] MEDS ORDERED: NEBI5 PO (10:54)
[2017-11-11] MEDS ORDERED: PRED20 PO (10:55)
== END 2017-11-11 13:52 | disposition home or self-care (01) | DRG 871 ==
LOC: ER 02:06 → SURS 04:34 → PCU 04:34 → SURS 11-06 14:12
PROVIDERS: Emergency Medicine; Internal Medicine
DX: A41.9 Sepsis, unspecified organism (principal); J18.9 Pneumonia, unspecified organism; J96.21 Acute and chronic respiratory failure with hypoxia; J96.22 Acute and chronic respiratory failure with hypercapnia; J44.0 Chronic obstructive pulmonary disease with (acute) lower respiratory infection; I50.32 Chronic diastolic (congestive) heart failure; N17.9 Acute kidney failure, unspecified; J44.1 Chronic obstructive pulmonary disease with (acute) exacerbation; Z99.81 Dependence on supplemental oxygen; I48.2 Chronic atrial fibrillation; M19.90 Unspecified osteoarthritis, unspecified site; Z87.891 Personal history of nicotine dependence; F41.9 Anxiety disorder, unspecified; D63.8 Anemia in other chronic diseases classified elsewhere; I35.1 Nonrheumatic aortic (valve) insufficiency; G62.9 Polyneuropathy, unspecified; I11.0 Hypertensive heart disease with heart failure; Y95 Nosocomial condition; K59.00 Constipation, unspecified; K21.9 Gastro-esophageal reflux disease without esophagitis; N18.9 Chronic kidney disease, unspecified; E87.6 Hypokalemia
CPT/HCPCS: 36415; 71045; 71046; 71250; 76770; 80048; 80053; 80202; 82272; 82728; 83540; 83550; 83735; 83880; 84145; 84484; 85025; 85027; 93005; 93010; 94640; 94667; 94760; 96365; 96366; 96375; 97110; 97116; 97161; 97530; 99285-25; G8978; G8979; J0692; J1956; J2405; J2550; J2920; J2930; J3370; J3480; J7040; J7050

== ENCOUNTER 2017-12-16 04:09 | Inpatient (IN) | payer MEDICARE, BC ==
[~2017-12-16] VITALS: Ht 165.1 cm; Wt 65.0 kg
[~2017-12-16 04:09] MED LIST changes: +FURO20 PO; +Metamucil Smooth1 EA PO; +NEBI5 PO; +POTCHL20ER PO
[2017-12-16 05:14] LABS: Alanine Aminotransfer (ALT/SGP 12 U/L (12-78); Albumin, Blood 2.6 g/dL (3.4-5.0); Albumin/Globulin Ratio 0.6 (0.8-1.8); Alk Phos 87 U/L (50-136); Anion Gap 9 mmol/L (6-16); Aspartate Aminotrans (AST/SGOT 12 U/L (12-37); Bilirubin, Total 0.3 mg/dL (0.1-1.0); Blood Urea Nitrogen 21 mg/dL (8-24); Bun/Creatinine Ratio 19.8 (12.0-20.0); CO2, Blood 28 mmol/L (21-32); Chloride, Blood 101 mmol/L (98-108); Creatinine, Blood 1.06 mg/dL (0.40-1.00); Globulin, Blood 4.3 g/dL (2.2-4.0); Glomerular Filtration Rate 54 (60-); Glucose, Blood 100 mg/dL (70-99); Potassium, Blood 4.4 mmol/L (3.5-5.5); Sodium, Blood 138 mmol/L (136-145); Total Protein, Blood 6.9 g/dL (6.4-8.2); Troponin I <0.015 ng/mL (0.000-0.040)
[2017-12-16 05:59] LABS: BASOPHILS ABSOLUTE AUTO 0.04 K/mm3 (0.00-0.23); BASOPHILS PERCENT AUTO 0 % (0-2); EOSINOPHILS ABSOLUTE AUTO 0.11 K/mm3 (0.00-0.68); EOSINOPHILS PERCENT AUTO 1 % (0-6); Hematocrit 27.6 % (33.0-51.0); Hemoglobin 8.4 g/dL (11.5-16.0); IMMATURE GRAN ABSOLUTE AUTO 0.06 K/mm3 (0.00-0.10); IMMATURE GRAN PERCENT AUTO 1 % (0-1); LYMPHOCYTES ABSOLUTE AUTO 0.77 K/mm3 (0.84-5.20); LYMPHOCYTES PERCENT AUTO 6 % (21-46); MONOCYTES ABSOLUTE AUTO 0.88 K/mm3 (0.16-1.47); MONOCYTES PERCENT AUTO 7 % (4-13); Mean Corpuscular HGB 29.2 pg (26.0-34.0); Mean Corpuscular HGB Conc 30.4 g/dL (31.5-36.5); Mean Corpuscular Volume 96 fL (80-100); Mean Platelet Volume 8.8 fL (9.1-12.4); NEUTROPHILS ABSOLUTE AUTO 11.26 K/mm3 (1.96-9.15); NEUTROPHILS PERCENT AUTO 86 % (41-73); Platelet Count 676 K/mm3 (150-400); RDW Coefficient Variation 17.3 % (11.7-14.2); RDW Standard Deviation 61.4 fL (35.1-46.3); Red Blood Cell Count 2.88 M/mm3 (3.80-5.20); White Blood Cell Count 13.12 K/mm3 (4.00-11.30)
[2017-12-16 06:52] LABS: International Normalized Ratio 1.39; Prothrombin Time Results 14.1 Sec (9.7-11.5)
[2017-12-17 05:23] LABS: BASOPHILS ABSOLUTE AUTO 0.01 K/mm3 (0.00-0.23); BASOPHILS PERCENT AUTO 0 % (0-2); EOSINOPHILS PERCENT AUTO 0 % (0-6); Hematocrit 24.9 % (33.0-51.0); Hemoglobin 7.8 g/dL (11.5-16.0); IMMATURE GRAN PERCENT AUTO 1 % (0-1); LYMPHOCYTES ABSOLUTE AUTO 0.64 K/mm3 (0.84-5.20); LYMPHOCYTES PERCENT AUTO 5 % (21-46); MONOCYTES ABSOLUTE AUTO 0.18 K/mm3 (0.16-1.47); MONOCYTES PERCENT AUTO 2 % (4-13); Mean Corpuscular HGB 29.5 pg (26.0-34.0); Mean Corpuscular HGB Conc 31.3 g/dL (31.5-36.5); Mean Corpuscular Volume 94 fL (80-100); Mean Platelet Volume 8.6 fL (9.1-12.4); NEUTROPHILS ABSOLUTE AUTO 10.89 K/mm3 (1.96-9.15); NEUTROPHILS PERCENT AUTO 92 % (41-73); Platelet Count 669 K/mm3 (150-400); RDW Coefficient Variation 17.1 % (11.7-14.2); RDW Standard Deviation 59.1 fL (35.1-46.3); Red Blood Cell Count 2.64 M/mm3 (3.80-5.20); White Blood Cell Count 11.82 K/mm3 (4.00-11.30)
[2017-12-17 05:52] LABS: Bun/Creatinine Ratio 22.9 (12.0-20.0); Calcium, Blood 9.2 mg/dL (8.5-10.1); Creatinine, Blood 0.96 mg/dL (0.40-1.00); Magnesium, Blood 1.8 mg/dL (1.6-2.4)
[2017-12-18 05:35] LABS: BASOPHILS ABSOLUTE AUTO 0.01 K/mm3 (0.00-0.23); BASOPHILS PERCENT AUTO 0 % (0-2); EOSINOPHILS PERCENT AUTO 0 % (0-6); Hematocrit 26.4 % (33.0-51.0); Hemoglobin 8.4 g/dL (11.5-16.0); IMMATURE GRAN PERCENT AUTO 1 % (0-1); LYMPHOCYTES ABSOLUTE AUTO 0.47 K/mm3 (0.84-5.20); LYMPHOCYTES PERCENT AUTO 3 % (21-46); MONOCYTES ABSOLUTE AUTO 0.44 K/mm3 (0.16-1.47); MONOCYTES PERCENT AUTO 3 % (4-13); Mean Corpuscular HGB 30.3 pg (26.0-34.0); Mean Corpuscular HGB Conc 31.8 g/dL (31.5-36.5); Mean Corpuscular Volume 95 fL (80-100); Mean Platelet Volume 8.5 fL (9.1-12.4); NEUTROPHILS ABSOLUTE AUTO 14.29 K/mm3 (1.96-9.15); NEUTROPHILS PERCENT AUTO 93 % (41-73); NRBC ABSOLUTE 0.02 K/mm3 (0.00-0.02); NRBC Auto 0.1 /100 WBC (0.0-0.2); Platelet Count 744 K/mm3 (150-400); RDW Coefficient Variation 17.4 % (11.7-14.2); RDW Standard Deviation 60.7 fL (35.1-46.3); Red Blood Cell Count 2.77 M/mm3 (3.80-5.20); White Blood Cell Count 15.31 K/mm3 (4.00-11.30)
[2017-12-18 05:51] LABS: Bun/Creatinine Ratio 28.8 (12.0-20.0); Calcium, Blood 9.1 mg/dL (8.5-10.1); Creatinine, Blood 1.04 mg/dL (0.40-1.00); Potassium, Blood 4.3 mmol/L (3.5-5.5)
[2017-12-18 18:53] LABS: Adenovirus Not Detected (NOT DETECT); Bordetella pertussis Not Detected (NOT DETECT); Chlamydophila pneumoniae Not Detected (NOT DETECT); Coronavirus 229E Not Detected (NOT DETECT); Coronavirus HKU1 Not Detected (NOT DETECT); Coronavirus NL63 Not Detected (NOT DETECT); Coronavirus OC43 Not Detected (NOT DETECT); Human Metapneumovirus Not Detected (NOT DETECT); Human Rhinovirus/Enterovirus Not Detected (NOT DETECT); Influenza A/2009-H1 Not Detected (NOT DETECT); Influenza A/H1 Not Detected (NOT DETECT); Influenza A/H3 Not Detected (NOT DETECT); Influenza B Not Detected (NOT DETECT); Mycoplasma pneumoniae Not Detected (NOT DETECT); Parainfluenza Virus 1 Not Detected (NOT DETECT); Parainfluenza Virus 2 Not Detected (NOT DETECT); Parainfluenza Virus 3 Not Detected (NOT DETECT); Parainfluenza Virus 4 Not Detected (NOT DETECT); Respiratory Syncytial Virus Not Detected (NOT DETECT)
[2017-12-19 03:36] LABS: Influenza A Not Detected (NOT DETECT)
[2017-12-19 04:46] LABS: Hematocrit 25.5 % (33.0-51.0); Hemoglobin 8.1 g/dL (11.5-16.0); Mean Corpuscular HGB 30.1 pg (26.0-34.0); Mean Corpuscular HGB Conc 31.8 g/dL (31.5-36.5); Mean Corpuscular Volume 95 fL (80-100); Mean Platelet Volume 8.4 fL (9.1-12.4); NRBC ABSOLUTE 0.02 K/mm3 (0.00-0.02); NRBC Auto 0.1 /100 WBC (0.0-0.2); Platelet Count 673 K/mm3 (150-400); RDW Coefficient Variation 17.3 % (11.7-14.2); RDW Standard Deviation 60.7 fL (35.1-46.3); Red Blood Cell Count 2.69 M/mm3 (3.80-5.20)
[2017-12-19 05:03] LABS: Bun/Creatinine Ratio 33.6 (12.0-20.0); Calcium, Blood 8.6 mg/dL (8.5-10.1); Creatinine, Blood 1.1 mg/dL (0.40-1.00); Potassium, Blood 3.8 mmol/L (3.5-5.5)
[2017-12-20 08:26] LABS: Stool Occult Blood Guaiac 1 Neg (Neg)
[2017-12-20] MEDS ORDERED: AMOCLA500 PO (12:10)
[2017-12-20] MEDS ORDERED: Acidophilus La100 GM PO (12:11)
[2017-12-20] MEDS ORDERED: PRED20 PO (12:11)
== END 2017-12-20 12:57 | disposition home or self-care (01) | DRG 205 ==
LOC: ER 04:09 → MEDS 06:12 → ENPENDDIS 12-20 10:30 → MEDS 12-20 12:57
PROVIDERS: Emergency Medicine; Family Medicine; Internal Medicine; Internal Medicine Critical Care Medicine
DX: J70.2 Acute drug-induced interstitial lung disorders (principal); J96.21 Acute and chronic respiratory failure with hypoxia; J96.22 Acute and chronic respiratory failure with hypercapnia; I50.30 Unspecified diastolic (congestive) heart failure; I48.92 Unspecified atrial flutter; J44.0 Chronic obstructive pulmonary disease with (acute) lower respiratory infection; J18.9 Pneumonia, unspecified organism; Z87.891 Personal history of nicotine dependence; M19.90 Unspecified osteoarthritis, unspecified site; Z99.81 Dependence on supplemental oxygen; G62.9 Polyneuropathy, unspecified; I48.2 Chronic atrial fibrillation; Z87.01 Personal history of pneumonia (recurrent); I11.0 Hypertensive heart disease with heart failure; I35.1 Nonrheumatic aortic (valve) insufficiency; D50.9 Iron deficiency anemia, unspecified; F41.9 Anxiety disorder, unspecified; E78.00 Pure hypercholesterolemia, unspecified; J30.9 Allergic rhinitis, unspecified; T46.2X5A Adverse effect of other antidysrhythmic drugs, initial encounter; Y92.9 Unspecified place or not applicable; K59.00 Constipation, unspecified
CPT/HCPCS: 36415; 71046; 71250; 80048; 80053; 82272; 82607; 82728; 82746; 83540; 83550; 83605; 83735; 83880; 84145; 84484; 85025; 85027; 85610; 87040; 87070; 87205; 87486; 87581; 87633; 87798; 93005; 93010; 94640; 94644; 94664; 94667; 94760; 96361; 96374; 96375; 98960; 99285-25; J0692; J1956; J2405; J2543; J2930; J7030; J7050

== ENCOUNTER 2018-02-02 07:41 | Inpatient (IN) | payer MEDICARE, BC ==
[~2018-02-02] VITALS: Ht 165.1 cm; Wt 61.1 kg
[~2018-02-02 07:41] MED LIST changes: +AMOCLA500 PO; +Acidophilus La100 GM PO; +Augmentin 875-1 EACH PO; +PRED10 PO
[2018-02-02 08:36] LABS: Hemoglobin 11.1 g/dL (11.5-16.0); Mean Corpuscular HGB 30.2 pg (26.0-34.0); Mean Platelet Volume 8.9 fL (9.1-12.4); NRBC Auto 0.8 /100 WBC (0.0-0.2); Platelet Count 477 K/mm3 (150-400); RDW Coefficient Variation 19.7 % (11.7-14.2); RDW Standard Deviation 73.9 fL (35.1-46.3); Red Blood Cell Count 3.68 M/mm3 (3.80-5.20); White Blood Cell Count 12.92 K/mm3 (4.00-11.30)
[2018-02-02 08:45] LABS: Alanine Aminotransfer (ALT/SGP 44 U/L (12-78); Albumin, Blood 2.9 g/dL (3.4-5.0); Albumin/Globulin Ratio 0.6 (0.8-1.8); Alk Phos 87 U/L (50-136); Anion Gap 10 mmol/L (6-16); Aspartate Aminotrans (AST/SGOT 20 U/L (12-37); Bilirubin, Total 0.5 mg/dL (0.1-1.0); Blood Urea Nitrogen 32 mg/dL (8-24); Bun/Creatinine Ratio 33.9 (12.0-20.0); CO2, Blood 30 mmol/L (21-32); Calcium, Blood 9.4 mg/dL (8.5-10.1); Chloride, Blood 96 mmol/L (98-108); Creatinine, Blood 0.95 mg/dL (0.40-1.00); Globulin, Blood 4.5 g/dL (2.2-4.0); Glomerular Filtration Rate >60 (60-); Glucose, Blood 80 mg/dL (70-99); Potassium, Blood 4.9 mmol/L (3.5-5.5); Sodium, Blood 136 mmol/L (136-145); Total Protein, Blood 7.4 g/dL (6.4-8.2); Troponin I 0.047 ng/mL (0.000-0.040)
[2018-02-02 08:46] LABS: Mean Corpuscular Volume 101 fL (80-100)
[2018-02-02 09:02] LABS: BASOPHILS PERCENT MAN 0 % (0-2); EOSINOPHILS PERCENT MAN 0 % (0-6); LYMPHOCYTES ABSOLUTE MAN 0.77 K/mm3 (0.84-5.20); LYMPHOCYTES PERCENT MAN 6 % (21-46); MONOCYTES PERCENT MAN 0 % (4-13); MYELOCYTE ABSOLUTE MAN 0.12 K/mm3 (0.00-0.00); MYELOCYTE PERCENT MAN 1 % (0-0); NEUTROPHILS ABSOLUTE MAN 12.01 K/mm3 (1.96-9.15); SEG NEUTROPHILS PERCENT MAN 93 % (41-73); TOTAL CELLS COUNTED 100
[2018-02-02 11:13] LABS: Base Excess Venous 8.1 mmol/L; Bicarbonate Venous 31.1 mmol/L (24.0-30.0); PCO2 Venous 43.3 mmHg (38-42); PO2 Venous 111 mmHg (38-42); pH Blood Venous 7.47 (7.34-7.37)
[2018-02-03 00:58] LABS: BASOPHILS PERCENT AUTO 0 % (0-2); EOSINOPHILS PERCENT AUTO 0 % (0-6); Hematocrit 29.5 % (33.0-51.0); Hemoglobin 9.2 g/dL (11.5-16.0); IMMATURE GRAN PERCENT AUTO 1 % (0-1); LYMPHOCYTES ABSOLUTE AUTO 0.34 K/mm3 (0.84-5.20); LYMPHOCYTES PERCENT AUTO 4 % (21-46); MONOCYTES ABSOLUTE AUTO 0.06 K/mm3 (0.16-1.47); MONOCYTES PERCENT AUTO 1 % (4-13); Mean Corpuscular HGB 30.4 pg (26.0-34.0); Mean Corpuscular HGB Conc 31.2 g/dL (31.5-36.5); Mean Platelet Volume 8.7 fL (9.1-12.4); NEUTROPHILS PERCENT AUTO 95 % (41-73); NRBC ABSOLUTE 0.03 K/mm3 (0.00-0.02); NRBC Auto 0.3 /100 WBC (0.0-0.2); Platelet Count 381 K/mm3 (150-400); RDW Coefficient Variation 19.4 % (11.7-14.2); RDW Standard Deviation 69.2 fL (35.1-46.3); Red Blood Cell Count 3.03 M/mm3 (3.80-5.20)
[2018-02-03 01:05] LABS: Mean Corpuscular Volume 97 fL (80-100)
[2018-02-03 01:43] LABS: Bun/Creatinine Ratio 32.5 (12.0-20.0); Calcium, Blood 8.9 mg/dL (8.5-10.1); Creatinine, Blood 1.2 mg/dL (0.40-1.00); Magnesium, Blood 1.8 mg/dL (1.6-2.4); Potassium, Blood 4.2 mmol/L (3.5-5.5)
[2018-02-04 04:39] LABS: Hematocrit 30.6 % (33.0-51.0); Hemoglobin 9.6 g/dL (11.5-16.0); Mean Corpuscular HGB 30.5 pg (26.0-34.0); Mean Corpuscular HGB Conc 31.4 g/dL (31.5-36.5); Mean Corpuscular Volume 97 fL (80-100); Mean Platelet Volume 9.2 fL (9.1-12.4); NRBC ABSOLUTE 0.03 K/mm3 (0.00-0.02); NRBC Auto 0.3 /100 WBC (0.0-0.2); Platelet Count 409 K/mm3 (150-400); RDW Coefficient Variation 18.8 % (11.7-14.2); RDW Standard Deviation 67.1 fL (35.1-46.3); Red Blood Cell Count 3.15 M/mm3 (3.80-5.20); White Blood Cell Count 11.16 K/mm3 (4.00-11.30)
[2018-02-04 05:05] LABS: Albumin, Blood 2.3 g/dL (3.4-5.0); Anion Gap 9 mmol/L (6-16); Blood Urea Nitrogen 42 mg/dL (8-24); Bun/Creatinine Ratio 41.2 (12.0-20.0); CO2, Blood 33 mmol/L (21-32); Calcium, Blood 8.9 mg/dL (8.5-10.1); Chloride, Blood 93 mmol/L (98-108); Creatinine, Blood 1.02 mg/dL (0.40-1.00); Glomerular Filtration Rate 56 (60-); Glucose, Blood 124 mg/dL (70-99); Magnesium, Blood 2.2 mg/dL (1.6-2.4); Potassium, Blood 3.8 mmol/L (3.5-5.5); Sodium, Blood 135 mmol/L (136-145)
[2018-02-04 05:21] LABS: BAND PERCENT MAN 2 % (0-8); BASOPHILS PERCENT MAN 0 % (0-2); EOSINOPHILS PERCENT MAN 0 % (0-6); LYMPHOCYTES ABSOLUTE MAN 0.11 K/mm3 (0.84-5.20); LYMPHOCYTES PERCENT MAN 1 % (21-46); METAMYELOCYTE ABSOLUTE MAN 0.22 K/mm3 (0.00-0.00); METAMYELOCYTE PERCENT MAN 2 % (0-0); MONOCYTES ABSOLUTE MAN 0.11 K/mm3 (0.16-1.47); MONOCYTES PERCENT MAN 1 % (4-13); NEUTROPHILS ABSOLUTE MAN 10.71 K/mm3 (1.96-9.15); SEG NEUTROPHILS PERCENT MAN 94 % (41-73); TOTAL CELLS COUNTED 100
[2018-02-06 04:44] LABS: Albumin, Blood 2.3 g/dL (3.4-5.0); Anion Gap 10 mmol/L (6-16); Blood Urea Nitrogen 42 mg/dL (8-24); Bun/Creatinine Ratio 48.2 (12.0-20.0); CO2, Blood 40 mmol/L (21-32); Calcium, Blood 8.7 mg/dL (8.5-10.1); Chloride, Blood 86 mmol/L (98-108); Creatinine, Blood 0.87 mg/dL (0.40-1.00); Glomerular Filtration Rate >60 (60-); Glucose, Blood 105 mg/dL (70-99); Phosphorus, Blood 2.8 mg/dL (2.5-4.9); Potassium, Blood 2.9 mmol/L (3.5-5.5); Sodium, Blood 136 mmol/L (136-145)
[2018-02-06 05:27] LABS: BAND PERCENT MAN 3 % (0-8); BASOPHILS PERCENT MAN 0 % (0-2); EOSINOPHILS PERCENT MAN 0 % (0-6); LYMPHOCYTES PERCENT MAN 8 % (21-46); MONOCYTES PERCENT MAN 4 % (4-13); SEG NEUTROPHILS PERCENT MAN 85 % (41-73); TOTAL CELLS COUNTED 100
[2018-02-06 06:09] LABS: BASOPHILS PERCENT AUTO 0 % (0-2); EOSINOPHILS ABSOLUTE AUTO 0.01 K/mm3 (0.00-0.68); EOSINOPHILS PERCENT AUTO 0 % (0-6); Hematocrit 34.9 % (33.0-51.0); Hemoglobin 11.3 g/dL (11.5-16.0); IMMATURE GRAN ABSOLUTE AUTO 0.09 K/mm3 (0.00-0.10); IMMATURE GRAN PERCENT AUTO 1 % (0-1); LYMPHOCYTES ABSOLUTE AUTO 0.41 K/mm3 (0.84-5.20); LYMPHOCYTES PERCENT AUTO 4 % (21-46); MONOCYTES ABSOLUTE AUTO 0.42 K/mm3 (0.16-1.47); MONOCYTES PERCENT AUTO 4 % (4-13); Mean Corpuscular HGB 30.2 pg (26.0-34.0); Mean Corpuscular HGB Conc 32.4 g/dL (31.5-36.5); Mean Platelet Volume 9.4 fL (9.1-12.4); NEUTROPHILS ABSOLUTE AUTO 10.26 K/mm3 (1.96-9.15); NEUTROPHILS PERCENT AUTO 92 % (41-73); NRBC ABSOLUTE 0.02 K/mm3 (0.00-0.02); NRBC Auto 0.2 /100 WBC (0.0-0.2); Platelet Count 449 K/mm3 (150-400); RDW Coefficient Variation 17.9 % (11.7-14.2); RDW Standard Deviation 61.5 fL (35.1-46.3); Red Blood Cell Count 3.74 M/mm3 (3.80-5.20); White Blood Cell Count 11.19 K/mm3 (4.00-11.30)
[2018-02-06 06:11] LABS: Mean Corpuscular Volume 93 fL (80-100)
[2018-02-06 13:24] LABS: Magnesium, Blood 2.2 mg/dL (1.6-2.4); Potassium, Blood 4.6 mmol/L (3.5-5.5)
[2018-02-07 04:31] LABS: Albumin, Blood 2.3 g/dL (3.4-5.0); Anion Gap 8 mmol/L (6-16); Blood Urea Nitrogen 39 mg/dL (8-24); Bun/Creatinine Ratio 46.2 (12.0-20.0); CO2, Blood 38 mmol/L (21-32); Calcium, Blood 9.3 mg/dL (8.5-10.1); Chloride, Blood 86 mmol/L (98-108); Creatinine, Blood 0.85 mg/dL (0.40-1.00); Glomerular Filtration Rate >60 (60-); Glucose, Blood 91 mg/dL (70-99); Magnesium, Blood 2.1 mg/dL (1.6-2.4); Phosphorus, Blood 2.8 mg/dL (2.5-4.9); Potassium, Blood 4.2 mmol/L (3.5-5.5); Sodium, Blood 132 mmol/L (136-145)
[2018-02-07] MEDS ORDERED: FURO20 PO (12:13)
[2018-02-07] MEDS ORDERED: ALBU3IS INH (12:14)
[2018-02-07] MEDS ORDERED: K-Tab10 MEQ PO (12:14)
== END 2018-02-07 12:50 | disposition home or self-care (01) | DRG 871 ==
LOC: ER 07:41 → PCU 10:22
PROVIDERS: Family Medicine; Internal Medicine; Internal Medicine Cardiovascular Disease; Physician Assistant
DX: A41.9 Sepsis, unspecified organism (principal); J96.21 Acute and chronic respiratory failure with hypoxia; J18.9 Pneumonia, unspecified organism; I50.33 Acute on chronic diastolic (congestive) heart failure; I21.A1 Myocardial infarction type 2; J44.0 Chronic obstructive pulmonary disease with (acute) lower respiratory infection; J44.1 Chronic obstructive pulmonary disease with (acute) exacerbation; I13.0 Hypertensive heart and chronic kidney disease with heart failure and stage 1 through stage 4 chronic kidney disease, or unspecified chronic kidney disease; E87.1 Hypo-osmolality and hyponatremia; R65.20 Severe sepsis without septic shock; D64.9 Anemia, unspecified; D47.3 Essential (hemorrhagic) thrombocythemia; N18.3 Chronic kidney disease, stage 3 (moderate); D63.1 Anemia in chronic kidney disease; T46.2X5A Adverse effect of other antidysrhythmic drugs, initial encounter; I48.0 Paroxysmal atrial fibrillation; Z79.01 Long term (current) use of anticoagulants; Z87.891 Personal history of nicotine dependence
CPT/HCPCS: 36415; 71046; 80048; 80053; 80069; 82803; 83605; 83735; 83880; 84132; 84145; 84484; 85025; 87040; 93005; 93010; 93970; 94640; 94760; 96374; 96375; 96376; 99285-25; J0153; J0456; J0696; J1940; J1956; J2060; J2920; J2930; J3475; J7030; J7050

== ENCOUNTER 2018-05-16 23:41 | Emergency (ER) | payer MEDICARE, BC ==
[~2018-05-16] VITALS: Ht 165.1 cm; Wt 61.2 kg
[~2018-05-16 23:41] MED LIST changes: +ALBU3IS INH; +K-Tab10 MEQ PO
[2018-05-17 00:42] LABS: BASOPHILS ABSOLUTE AUTO 0.05 K/mm3 (0.00-0.23); BASOPHILS PERCENT AUTO 1 % (0-2); EOSINOPHILS ABSOLUTE AUTO 0.17 K/mm3 (0.00-0.68); EOSINOPHILS PERCENT AUTO 2 % (0-6); Hematocrit 32.3 % (33.0-51.0); Hemoglobin 10.2 g/dL (11.5-16.0); IMMATURE GRAN ABSOLUTE AUTO 0.07 K/mm3 (0.00-0.10); IMMATURE GRAN PERCENT AUTO 1 % (0-1); LYMPHOCYTES ABSOLUTE AUTO 2.09 K/mm3 (0.84-5.20); LYMPHOCYTES PERCENT AUTO 21 % (21-46); MONOCYTES ABSOLUTE AUTO 0.71 K/mm3 (0.16-1.47); MONOCYTES PERCENT AUTO 7 % (4-13); Mean Corpuscular HGB 31.9 pg (26.0-34.0); Mean Corpuscular HGB Conc 31.6 g/dL (31.5-36.5); Mean Corpuscular Volume 101 fL (80-100); Mean Platelet Volume 8.9 fL (9.1-12.4); NEUTROPHILS ABSOLUTE AUTO 6.73 K/mm3 (1.96-9.15); NEUTROPHILS PERCENT AUTO 69 % (41-73); Platelet Count 495 K/mm3 (150-400); RDW Coefficient Variation 15.4 % (11.7-14.2); RDW Standard Deviation 56.7 fL (35.1-46.3); White Blood Cell Count 9.82 K/mm3 (4.00-11.30)
[2018-05-17 01:03] LABS: Alanine Aminotransfer (ALT/SGP 22 U/L (12-78); Albumin, Blood 3.2 g/dL (3.4-5.0); Albumin/Globulin Ratio 0.8 (0.8-1.8); Alk Phos 83 U/L (50-136); Anion Gap 8 mmol/L (6-16); Aspartate Aminotrans (AST/SGOT 24 U/L (12-37); Bilirubin, Total 0.3 mg/dL (0.1-1.0); Blood Urea Nitrogen 25 mg/dL (8-24); Bun/Creatinine Ratio 28.4 (12.0-20.0); CO2, Blood 30 mmol/L (21-32); Calcium, Blood 9.6 mg/dL (8.5-10.1); Chloride, Blood 101 mmol/L (98-108); Creatinine, Blood 0.88 mg/dL (0.40-1.00); Glomerular Filtration Rate >60 (60-); Glucose, Blood 89 mg/dL (70-99); Sodium, Blood 139 mmol/L (136-145); Total Protein, Blood 7.2 g/dL (6.4-8.2); Troponin I 0.023 ng/mL (0.000-0.040)
== END 2018-05-17 01:59 | disposition home or self-care (01) ==
LOC: ER 23:41
PROVIDERS: Physician Assistant
DX: R55 Syncope and collapse (principal); I10 Essential (primary) hypertension; F41.0 Panic disorder [episodic paroxysmal anxiety]; I48.91 Unspecified atrial fibrillation; J44.9 Chronic obstructive pulmonary disease, unspecified; Z87.891 Personal history of nicotine dependence
CPT/HCPCS: 36415; 80053; 84484; 85025; 93005; 93010; 96360; 99284-25; J7030

== ENCOUNTER 2018-11-10 16:54 | Inpatient (IN) | payer MEDICARE, BC ==
[~2018-11-10] VITALS: Ht 162.6 cm; Wt 60.6 kg
[~2018-11-10 16:54] MED LIST changes: +LOSA25 PO; +OMEP20ER PO; -Omeprazole20 M1 PO; +TIOT18 INH
[2018-11-10] MEDS ORDERED: DILT120 PO (19:26)
[2018-11-10] MEDS ORDERED: POTA10T PO (19:26)
[2018-11-10] MEDS ORDERED: Norvasc2.5 MG PO (19:27)
[2018-11-10] MEDS ORDERED: VITAMIN D32000 UNI1 PO (19:29)
[2018-11-10] MEDS ORDERED: NEBI10 PO (20:36)
[2018-11-11] MEDS ORDERED: ALBU3IS INH (01:42)
[2018-11-11 03:38] LABS: BASOPHILS ABSOLUTE AUTO 0.05 K/mm3 (0.00-0.23); BASOPHILS PERCENT AUTO 1 % (0-2); EOSINOPHILS ABSOLUTE AUTO 0.34 K/mm3 (0.00-0.68); EOSINOPHILS PERCENT AUTO 3 % (0-6); Hematocrit 29.9 % (33.0-51.0); Hemoglobin 9.4 g/dL (11.5-16.0); IMMATURE GRAN ABSOLUTE AUTO 0.05 K/mm3 (0.00-0.10); IMMATURE GRAN PERCENT AUTO 1 % (0-1); LYMPHOCYTES ABSOLUTE AUTO 1.39 K/mm3 (0.84-5.20); LYMPHOCYTES PERCENT AUTO 14 % (21-46); MONOCYTES ABSOLUTE AUTO 0.87 K/mm3 (0.16-1.47); MONOCYTES PERCENT AUTO 9 % (4-13); Mean Corpuscular HGB 30.4 pg (26.0-34.0); Mean Corpuscular HGB Conc 31.4 g/dL (31.5-36.5); Mean Corpuscular Volume 97 fL (80-100); Mean Platelet Volume 9.2 fL (9.1-12.4); NEUTROPHILS PERCENT AUTO 74 % (41-73); Platelet Count 519 K/mm3 (150-400); RDW Coefficient Variation 14.3 % (11.7-14.2); RDW Standard Deviation 50.4 fL (35.1-46.3); Red Blood Cell Count 3.09 M/mm3 (3.80-5.20)
[2018-11-11 04:02] LABS: Anion Gap 7 mmol/L (6-16); Blood Urea Nitrogen 41 mg/dL (8-24); Bun/Creatinine Ratio 45.4 (12.0-20.0); CO2, Blood 27 mmol/L (21-32); Calcium, Blood 9.3 mg/dL (8.5-10.1); Chloride, Blood 102 mmol/L (98-108); Free Thyroxine 1.17 ng/dL (0.70-1.60); Glomerular Filtration Rate >60 (60-); Glucose, Blood 95 mg/dL (70-99); Potassium, Blood 4.4 mmol/L (3.5-5.5); Sodium, Blood 136 mmol/L (136-145)
[2018-11-11 04:05] LABS: Triiodothyronine, Free 2.28 pg/mL (2.18-3.98)
--- NOTE | 2018-11-11 05:41 | NUR ---
ADMIT NOTE/SHIFT SUMMARY PATIENT PLEASENT AND COOPERATIVE UPON ADMIT. PATIENT ABLE TO TRANSFER SELF FROM THE GURNEY TO THE BED WITH SBA. PATIENT UP TO THE BSC SEVERAL TIMES WITH SBA. PATIENT ON CARDIZEM GTT AT 5 ML/HR. PATIENT'S HEART RATE REMAINS AFIB IN THE 90'S-100'S. HOWEVER, PATIENT'S HEART TENDS TO JUMP UP TO THE 120'S-130'S WITH ACTIVITY. PATIENT AWAKE MOST OF THE NIGHT BUT APPEARS TO HAVE NAPPED ON AND OFF THROUGHOUT THE NIGHT. PATIENT CURRENTLY APPEASR TO BE ASLEEP. WILL CONTINUE TO MONITOR PATIENT AND REPORT TO ONCOMING RN.
--- NOTE | 2018-11-11 08:56 | NUR ---
REPORT TO LARRY ANSARI WHO WILL ASSUME CARE AND COMFORT OF THIS PATIENT.
--- NOTE | 2018-11-11 09:25 | NUR ---
TRANSFER OF CARE ACCEPTED CARE. REPORT RECEIVED FROM RACHAEL ANSARI. PT AGREEABLE TO CHANGE IN FLOOR STAFF. CONTINUE POT.
[2018-11-11 11:46] LABS: Percent Saturation 16.7 % (15.0-50.0)
--- NOTE | 2018-11-11 18:07 | NUR ---
EVENING NOTE CARDIZEM GTT OFF AFTER GIVING ORAL CARDIZEM. AFIB CVR. RATE 70-90 BPM. VSS. PT HAS BEEN PLEASANT AND COOPERATIVE WITH CARE. UP SBA IN ROOM. GAIT STEADY. VOIDING WELL. FAMILY BROUGHT IN PT BYSTOLIC. SENT TO PHARMACY FOR ID. CONTINUE POT.
[2018-11-12 03:37] LABS: BASOPHILS ABSOLUTE AUTO 0.05 K/mm3 (0.00-0.23); BASOPHILS PERCENT AUTO 1 % (0-2); EOSINOPHILS ABSOLUTE AUTO 0.41 K/mm3 (0.00-0.68); EOSINOPHILS PERCENT AUTO 4 % (0-6); Hemoglobin 9.5 g/dL (11.5-16.0); IMMATURE GRAN ABSOLUTE AUTO 0.07 K/mm3 (0.00-0.10); IMMATURE GRAN PERCENT AUTO 1 % (0-1); LYMPHOCYTES ABSOLUTE AUTO 1.29 K/mm3 (0.84-5.20); LYMPHOCYTES PERCENT AUTO 12 % (21-46); MONOCYTES ABSOLUTE AUTO 0.86 K/mm3 (0.16-1.47); MONOCYTES PERCENT AUTO 8 % (4-13); Mean Corpuscular HGB 31.3 pg (26.0-34.0); Mean Corpuscular HGB Conc 31.7 g/dL (31.5-36.5); Mean Corpuscular Volume 99 fL (80-100); Mean Platelet Volume 9.1 fL (9.1-12.4); NEUTROPHILS ABSOLUTE AUTO 8.03 K/mm3 (1.96-9.15); NEUTROPHILS PERCENT AUTO 75 % (41-73); Platelet Count 585 K/mm3 (150-400); RDW Coefficient Variation 14.2 % (11.7-14.2); RDW Standard Deviation 50.8 fL (35.1-46.3); Red Blood Cell Count 3.04 M/mm3 (3.80-5.20); White Blood Cell Count 10.71 K/mm3 (4.00-11.30)
[2018-11-12 04:32] LABS: Alanine Aminotransfer (ALT/SGP 22 U/L (12-78); Albumin, Blood 2.5 g/dL (3.4-5.0); Albumin/Globulin Ratio 0.5 (0.8-1.8); Alk Phos 119 U/L (50-136); Anion Gap 6 mmol/L (6-16); Aspartate Aminotrans (AST/SGOT 18 U/L (12-37); Bilirubin, Total 0.2 mg/dL (0.1-1.0); Blood Urea Nitrogen 43 mg/dL (8-24); Bun/Creatinine Ratio 46.2 (12.0-20.0); CO2, Blood 28 mmol/L (21-32); Calcium, Blood 9.7 mg/dL (8.5-10.1); Chloride, Blood 102 mmol/L (98-108); Creatinine, Blood 0.93 mg/dL (0.40-1.00); Globulin, Blood 4.6 g/dL (2.2-4.0); Glomerular Filtration Rate >60 (60-); Glucose, Blood 95 mg/dL (70-99); Potassium, Blood 4.5 mmol/L (3.5-5.5); Sodium, Blood 136 mmol/L (136-145); Total Protein, Blood 7.1 g/dL (6.4-8.2)
--- NOTE | 2018-11-12 04:38 | NUR ---
END OF SHIFT SUMMARY PT AXO, PLEASANT WITH STAFF AT TIMES, OTHER TIMES CAN BE UNPLEASANT. PT REMAINS IN AFLUTTER. RATE HAS MAINTAINED MID 90'S FOR MAJORITY OF SHIFT THOUGH IT STARTED 110'S AT THE BEGINNING OF THE SHIFT. BP STABLE, NOTED TO BE TRENDING UPWARDS, WILL BE CHECKING AGAIN AND POSIBLY CALLING PROVIDER REGARDING THIS. PT HAS BEEN UP TO BSC A COUPLE TIMES THIS SHIFT. HAS RESTED IN BED FOR MAJORIT OF SHIFT THOUGH. USES CALL LIGHT APPROPRIATELY AND CALL LIGHT WITHIN REACH. BED IN LOWEST POSITION. WILL CONTINUE TO9 MONITOR PT UNTIL SHIFT CHANGE.
--- NOTE | 2018-11-12 10:08 | NUR ---
RIGHT FA WOUND PT AGREED TO HAVE THE HOME DRESSING TO HER RIGHT FA CHANGED. HER DOG SCRATCHED HER. PT REMOVED THE BROWN BANDAID. SMALL SKIN TEAR NOTED. CLEANED WITH WOUND ORNAMENT STITCHER AND 2X2. AIR DRIED. WOUND EDGES WELL APRROXIMATED. NO NEED FOR STERI STRIPS. PLACED A PINK FOAM ADDHESIVE DRESSING OVER AIR DRIED WOUND. PT EXPRESSED SATISFACTION WITH WOUNDCARE AND DRESSING. CONTINUE POT.
[2018-11-13 04:07] LABS: BASOPHILS ABSOLUTE AUTO 0.04 K/mm3 (0.00-0.23); BASOPHILS PERCENT AUTO 0 % (0-2); EOSINOPHILS ABSOLUTE AUTO 0.31 K/mm3 (0.00-0.68); EOSINOPHILS PERCENT AUTO 4 % (0-6); Hematocrit 29.3 % (33.0-51.0); Hemoglobin 9.4 g/dL (11.5-16.0); IMMATURE GRAN ABSOLUTE AUTO 0.07 K/mm3 (0.00-0.10); IMMATURE GRAN PERCENT AUTO 1 % (0-1); LYMPHOCYTES ABSOLUTE AUTO 1.61 K/mm3 (0.84-5.20); LYMPHOCYTES PERCENT AUTO 18 % (21-46); MONOCYTES ABSOLUTE AUTO 0.95 K/mm3 (0.16-1.47); MONOCYTES PERCENT AUTO 11 % (4-13); Mean Corpuscular HGB 30.9 pg (26.0-34.0); Mean Corpuscular HGB Conc 32.1 g/dL (31.5-36.5); Mean Corpuscular Volume 96 fL (80-100); NEUTROPHILS ABSOLUTE AUTO 5.99 K/mm3 (1.96-9.15); NEUTROPHILS PERCENT AUTO 67 % (41-73); Platelet Count 535 K/mm3 (150-400); RDW Coefficient Variation 14.2 % (11.7-14.2); RDW Standard Deviation 49.5 fL (35.1-46.3); Red Blood Cell Count 3.04 M/mm3 (3.80-5.20); White Blood Cell Count 8.97 K/mm3 (4.00-11.30)
[2018-11-13 04:28] LABS: Albumin, Blood 2.3 g/dL (3.4-5.0); Anion Gap 8 mmol/L (6-16); Blood Urea Nitrogen 47 mg/dL (8-24); Bun/Creatinine Ratio 43.5 (12.0-20.0); CO2, Blood 26 mmol/L (21-32); Calcium, Blood 9.1 mg/dL (8.5-10.1); Chloride, Blood 100 mmol/L (98-108); Creatinine, Blood 1.08 mg/dL (0.40-1.00); Glomerular Filtration Rate 52 (60-); Glucose, Blood 91 mg/dL (70-99); Phosphorus, Blood 4.4 mg/dL (2.5-4.9); Potassium, Blood 4.4 mmol/L (3.5-5.5); Sodium, Blood 134 mmol/L (136-145)
--- NOTE | 2018-11-13 05:03 | NUR ---
END OF SHIFT SUMMARY PT ALERT AND ORIENTED. PLEASANT. HAS BEEN DIG LOADED THIS SHIFT, PT REMAINS IN AFLUTTER BUT RATE HAS HOVERED IN THE 70'S TO 80'S. BP STABLE. PT ANXIOUS ABOUT MED CHANGES BUT HAS BEEN COMPLIANT. PT WANTING TO TALK TO ALAN REGARDING MEDICATION CHANGES. OTHERWISE PT HAS BEEN RESTING IN ROOM AND REQUIRING LITTLE FROM STAFF. HAS REQUIRED SOME BREATHING TREATMENTS BUT LS CLEAR. CALL LIGHT WITHIN REACH, USES APPROPRIATELY. WILL CONTINUE TO MONITOR PT UNTIL SHIFT CHANGE.
--- NOTE | 2018-11-13 14:09 | NUR ---
Initial Visit: Palliative Care Consult for Advanced Care Planning. Pt is A&Ox4 and denies pain at this time. Pt denies dyspnea, nausea, and anxiety at this time. Engaged in therapeutic discussion regarding advanced care planning. Pt reports living with her and uses a cane on a routine bases when ambulating. On occasion she uses a walker otherwise she is independent of her ADL's. Educated on disease process including trajectory. Educated on the importance of routine discussions with PCP and specialists in order to plan accordingly. Pt reports having an advanced directive completed at home and will bring a copy to the hospital after discharge when she is out and about. Pt reports no other concerns at this time. Spoke with bedside nurse Fátima and discussed case. Palliative Care will remain available.
--- NOTE | 2018-11-13 14:15 | NUR ---
NOTIFIED DR PHILLIPS THAT PT HR STARTED TRENDING UP A ROUND AROUND 1130, HAS BEEN SUSTAINING IN 120'S WITH AVERAGE OF 128 PT TELE, NEW ORDERS ENTERED.
--- NOTE | 2018-11-13 17:23 | NUR ---
SHIFT SUMMARY PT A&Ox4. PT ANXIOUS AT TIMES, EDUCATED PT ON MEDICATIONS AND DISCUSSED HR CHANGES, WHICH APPEARS TO HELP WITH ANXIETY. PT COOPERATIVE WITH CARE. PT IND TRANSFERS TO BSC. PT REPORTS "ALL OVER PAIN" WHICH GOT "BETTER" AFTER x1 OF TYLENOL. PT DENIES SOB, OM 3L 02 VIA NC, SPO2 >92% LS DIM BASES. PT DENIES NAUSEA, REPORTS HAVING POOR APPETITE, BUT EATING BECAUSE SHE KNOWS SHE HAS TOO. TELE SHOWING A-FLUTTER THIS AM 60-80, STARTED TRENDING UP TO 120-130'S, DR PHILLIPS NOTIFIED, NEW ORDERS ENTERED. OTHER VSS. NO OTHER ACUTE CHANGES NOTED DURING SHIFT. WILL CONTINUE TO MONITOR UNTIL REPORT GIVEN TO ONCOMING RN.
--- NOTE | 2018-11-13 19:20 | NUR ---
ASSUME CARE: BEDSIDE REPORT RECIEVED FROM GERMAN OFF GOING RN. MONITOR INTACT SHOWING A FLUTTER. HEART RATE 110'S-120'S. LUNG SOUNDS CLEAR UPPER LOBES WITH DECREASED SOUNDS IN THE BASES RESPIRATIONS REGULAR AND EASY AT REST. ABDOMEN SFOFT WITH BOWEL SOUNDS FOUR QUADS. VOIDS A M CATRINA URINE GAIT STEADY TO TOILET. CONTINUE TO MONITOR AND REPORT CHANGE IN PATIENT CONDITION. O2 IN PLACE AT 3L/MIN PER NC. SPO2 94-96%
--- NOTE | 2018-11-13 21:30 | NUR ---
HOSP NOTIFIED OF PT REQUEST FOR MEDS ORDERS NOTED
--- NOTE | 2018-11-14 07:46 | NUR ---
SHIFT SUMMARY: AWAKE UP IN ROOM GAIT STEADY TO TOILET. MONITOR INTACT SHOWING A FLUTTER HEART RATE 110'S-130'S. DR KHALIL IN TO SEE. ORDERS NOTED. LUNG SOUND REMAIN CLEAR UPPER LOBES WITH DECREASED SOUNDS IN THE BASES. RESPIRATIONS REGULAR AND EASY AT REST.WITH O2 IN PLACE AT 3L/MIN PER NC. SPO2 94-96% ABDOMEN SOFT WITH BOWELS SOUNDS FOUR QUADS. SKIN TEAR NOTED TO R FOREARM COVERED WITH OCCLUSIVE DRESSING AFTER CLEANSING GENTLY WITH SOAP AND WATER. CONTINUE TO MONITOR AND REPORT CHANGE IN PATIENT CONDITION
[2018-11-14 13:44] LABS: Stool Occult Bld Immuno 1 Positive (NEGATIVE)
[2018-11-14] MEDS ORDERED: METO100ER PO (14:48)
[2018-11-14] MEDS ORDERED: LANOXIN125 MCG PO (14:50)
--- NOTE | 2018-11-14 18:36 | NUR ---
DISCHARGE SUMMARY PT A&Ox4. ANXIOUS BUT COOPERATIVE WITH CARE. PT RESTING IN BED, IND TRANSFER TO [facility]. PT UP IN WHEELCHIAR, WHEELING SELF AROUND HALLS WITH CABLE SPLICER ASSISTANT. PT DENIES PAIN AND NAUSEA. PT SOB WITH EXERTION, SPO2 >94% ON 3L O2 VIA NC, WHICH IS BASELINE. PT RECEIVING PO METOPROLOL AND DIGOXIN. TELE A.FLUTTER AVERAGING 120-130'S, DR PHILLIPS AND DR ELIUD TAYLOR AWARE. PT AT 130 BPM WHEN DISCHARGE, DR TAYLOR AWARE AND OK TO CONTINUE WITH DISCHARGE. OCCULT PHU SPECIMEN COLLECTED AND SENT, POSITIVE RESULTS, NOTIFIED DR Tom TAYLOR, CONTINUE WITH DISCHARGE, WILL FOLLOW UP OUTPATIENT. SCHEDULED FOLLOW UP WITH DR PHILLIPS FOR 11/26/18 AT 1415, PT CALLED TO SCHEDULE AN APPOINTMENT SOONER AT 11/16/18 AT 1500. OTHER VSS. NO OTHER ACUTE CHANGES NOTED. PT EDUCATED ON DISCHRAGE INSTURCTIONS, MEDICATIONS AND FOLLOW UP APPOINTMENTS. PRESCRIPTIONS FAXED TO [facility] PER PT REQUEST. PT LEFT ROOM AT 1653 VIA WHEELCHAIR.
== END 2018-11-14 16:49 | disposition home or self-care (01) | DRG 308 ==
LOC: ER 16:54 → PCU 19:07
PROVIDERS: Family Medicine; Internal Medicine; ADMIT Internal Medicine
DX: I48.92 Unspecified atrial flutter (principal); E43 Unspecified severe protein-calorie malnutrition; J96.11 Chronic respiratory failure with hypoxia; I50.32 Chronic diastolic (congestive) heart failure; E87.1 Hypo-osmolality and hyponatremia; I13.0 Hypertensive heart and chronic kidney disease with heart failure and stage 1 through stage 4 chronic kidney disease, or unspecified chronic kidney disease; I48.0 Paroxysmal atrial fibrillation; D64.9 Anemia, unspecified; I35.0 Nonrheumatic aortic (valve) stenosis; K21.9 Gastro-esophageal reflux disease without esophagitis; J44.9 Chronic obstructive pulmonary disease, unspecified; E78.5 Hyperlipidemia, unspecified; G62.9 Polyneuropathy, unspecified; N18.2 Chronic kidney disease, stage 2 (mild); Z99.81 Dependence on supplemental oxygen; Z68.23 Body mass index [BMI] 23.0-23.9, adult; Z79.01 Long term (current) use of anticoagulants; Z79.899 Other long term (current) drug therapy; Z87.891 Personal history of nicotine dependence
CPT/HCPCS: 36415; 71046; 71250; 80048; 80053; 80069; 82274; 82728; 83540; 83550; 83735; 83880; 84439; 84481; 84484; 85025; 93005; 93010; 93306; 94640; 94760; 96374; 99285-25; A9270; J1160; J3475; J7030

== ENCOUNTER 2018-11-18 15:51 | Inpatient (IN) | payer MEDICARE, BC ==
[~2018-11-18] VITALS: Ht 160 cm; Wt 61.2 kg
[~2018-11-18 15:51] MED LIST changes: +LANOXIN125 MCG PO; +METO100ER PO; +NEBI10 PO; +Norvasc2.5 MG PO; +POTA10T PO; +VITAMIN D32000 UNI1 PO
[2018-11-18 16:49] LABS: BASOPHILS ABSOLUTE AUTO 0.06 K/mm3 (0.00-0.23); BASOPHILS PERCENT AUTO 1 % (0-2); EOSINOPHILS ABSOLUTE AUTO 0.44 K/mm3 (0.00-0.68); EOSINOPHILS PERCENT AUTO 5 % (0-6); Hematocrit 32.4 % (33.0-51.0); Hemoglobin 9.8 g/dL (11.5-16.0); IMMATURE GRAN ABSOLUTE AUTO 0.04 K/mm3 (0.00-0.10); IMMATURE GRAN PERCENT AUTO 0 % (0-1); LYMPHOCYTES ABSOLUTE AUTO 1.33 K/mm3 (0.84-5.20); LYMPHOCYTES PERCENT AUTO 15 % (21-46); MONOCYTES PERCENT AUTO 10 % (4-13); Mean Corpuscular HGB Conc 30.2 g/dL (31.5-36.5); NEUTROPHILS ABSOLUTE AUTO 6.14 K/mm3 (1.96-9.15); NEUTROPHILS PERCENT AUTO 69 % (41-73); Platelet Count 523 K/mm3 (150-400); RDW Coefficient Variation 14.4 % (11.7-14.2); RDW Standard Deviation 54.2 fL (35.1-46.3); Red Blood Cell Count 3.16 M/mm3 (3.80-5.20); White Blood Cell Count 8.91 K/mm3 (4.00-11.30)
[2018-11-18 16:56] LABS: Mean Corpuscular Volume 103 fL (80-100)
[2018-11-18 20:13] LABS: Alanine Aminotransfer (ALT/SGP 21 U/L (12-78); Albumin, Blood 2.5 g/dL (3.4-5.0); Albumin/Globulin Ratio 0.6 (0.8-1.8); Alk Phos 121 U/L (50-136); Anion Gap 5 mmol/L (6-16); Aspartate Aminotrans (AST/SGOT 32 U/L (12-37); Bilirubin, Total 0.2 mg/dL (0.1-1.0); Blood Urea Nitrogen 36 mg/dL (8-24); Bun/Creatinine Ratio 47.6 (12.0-20.0); CO2, Blood 27 mmol/L (21-32); Calcium, Blood 9.4 mg/dL (8.5-10.1); Chloride, Blood 103 mmol/L (98-108); Creatinine, Blood 0.76 mg/dL (0.40-1.00); Globulin, Blood 4.4 g/dL (2.2-4.0); Glomerular Filtration Rate >60 (60-); Glucose, Blood 92 mg/dL (70-99); Potassium, Blood 4.9 mmol/L (3.5-5.5); Sodium, Blood 135 mmol/L (136-145); Total Protein, Blood 6.9 g/dL (6.4-8.2); Troponin I <0.015 ng/mL (0.000-0.040)
[2018-11-18 20:22] LABS: Digoxin (Lanoxin) 1.08 ug/mL (0.80-2.00)
--- NOTE | 2018-11-18 21:00 | NUR ---
PT TO ICU 15 FROM ED. PT ALERT AND ORIENTED ABLE TO AMBULATE INDEPENDENTLY. PT ARRIVED ON 3L NC (BASELINE) WITH SAT IN THE MID 90'S. PT REPORTS THAT SHE USES CANE AT HOME D/T OSTEOARTHRITIS BUT IS ABLE TO AMBULATE TO BSC WITH STANDBY ASSIST. PT PLACED ON CARDIZEM GTT 5 MG/HR. HR 130'S-140'S. VSS. SEE FULL ADMISSION ASSESSMENT.
--- NOTE | 2018-11-19 06:30 | NUR ---
SHIFT SUMMARY NO ACUTE CHANGES SINCE ADMISSION. PT IS EASILY IRRITABLE AND ADMITTEDLY HAS LOW TOLERANCE FOR PAIN/DISCOMFORT. PT REFUSES BLOOD PRESSURE CHECK "IT HURTS". CARDIZEM @ 10 MG/HR WITH HR 69. CURRENT RHYTHM A-FLUTTER. PT AMBULATES INDEPENDENTLY TO BSC WITH NO DIFFICULTY, ATTENDS IN PLACE PER PT'S REQUEST . 3L NC WITH O2 SATS IN MID 90'S. WILL REPORT TO DAYSHIFT NURSE.
[2018-11-19 06:45] LABS: BASOPHILS ABSOLUTE AUTO 0.07 K/mm3 (0.00-0.23); BASOPHILS PERCENT AUTO 1 % (0-2); EOSINOPHILS ABSOLUTE AUTO 0.49 K/mm3 (0.00-0.68); EOSINOPHILS PERCENT AUTO 6 % (0-6); Hemoglobin 8.6 g/dL (11.5-16.0); IMMATURE GRAN ABSOLUTE AUTO 0.05 K/mm3 (0.00-0.10); IMMATURE GRAN PERCENT AUTO 1 % (0-1); LYMPHOCYTES ABSOLUTE AUTO 1.58 K/mm3 (0.84-5.20); LYMPHOCYTES PERCENT AUTO 18 % (21-46); MONOCYTES ABSOLUTE AUTO 0.87 K/mm3 (0.16-1.47); MONOCYTES PERCENT AUTO 10 % (4-13); Mean Corpuscular HGB 30.6 pg (26.0-34.0); Mean Corpuscular HGB Conc 30.7 g/dL (31.5-36.5); Mean Platelet Volume 9.1 fL (9.1-12.4); NEUTROPHILS ABSOLUTE AUTO 5.64 K/mm3 (1.96-9.15); NEUTROPHILS PERCENT AUTO 65 % (41-73); Platelet Count 484 K/mm3 (150-400); RDW Coefficient Variation 14.6 % (11.7-14.2); RDW Standard Deviation 53.1 fL (35.1-46.3); Red Blood Cell Count 2.81 M/mm3 (3.80-5.20)
[2018-11-19 06:48] LABS: Mean Corpuscular Volume 100 fL (80-100)
[2018-11-19 07:11] LABS: Anion Gap 7 mmol/L (6-16); Blood Urea Nitrogen 36 mg/dL (8-24); Bun/Creatinine Ratio 50.4 (12.0-20.0); CO2, Blood 27 mmol/L (21-32); Calcium, Blood 9.2 mg/dL (8.5-10.1); Chloride, Blood 104 mmol/L (98-108); Creatinine, Blood 0.71 mg/dL (0.40-1.00); Glomerular Filtration Rate >60 (60-); Glucose, Blood 92 mg/dL (70-99); Magnesium, Blood 1.5 mg/dL (1.6-2.4); Potassium, Blood 4.1 mmol/L (3.5-5.5); Sodium, Blood 138 mmol/L (136-145)
--- NOTE | 2018-11-19 08:29 | NUR ---
DR PHILLIPS: CAME IN TO BEDSIDE AND EDUCATED PT ON RISK OF PNEUMONIA WITH EACH HOSPITAL ADMIT. REMINDED PT OF BEING TOLD NOT TO COME IN TO THE HOSPITAL UNLESS HAVING FAINTING SPELLS AT HOME. PT DENIES FAINTING. DR PHILLIPS CONTINUED TO EDUCATE PT ON THE PLAN OF OUTPATIENT CARE. CARDIZEM TURNED OFF WILL START PO CARDIZEM.
[2018-11-19] MEDS ORDERED: DILT120 PO (13:28)
--- NOTE | 2018-11-19 14:56 | NUR ---
DISCHARGE: PT LEAVING THE ICU AT THIS TIME. REVIEWED DISCHARGE PACKET. PROVIDED PT WITH WRITTEN INFORMATION REGUARDING A-FIB, CHF, DIET, NEAR SYNCOPY AND MUCH MORE. RECEIVED ORDER FROM DR CALIX FOR PT TO PLACE PT ON THE HIGH RISK READMISSION PROGRAM, PT EDUCATED ON THE PROGRAM AND RECEIVED OK FOR HOME VISITS. PT REMINDED TO CALL DR PHILLIPS'S OFFICE IF PT SUSTAINES A HEART RATE >140 BPM, WELL COME TO THE ED IF ANY FAINTING/SYNCOPY. NO SIGNS OF DISTRESS PT LEAVING. HEART RATE PRIOR TO REMOVING HEART MONITOR IS NOTED TO BE IN THE 90'S.
== END 2018-11-19 15:05 | disposition home or self-care (01) | DRG 309 ==
LOC: ER 15:51 → ICUW 19:12 → ENPENDDIS 11-19 12:21 → ICUW 11-19 15:05
PROVIDERS: Emergency Medicine; ADMIT Student in an Organized Health Care Education/Training Program
DX: I48.2 Chronic atrial fibrillation (principal); I50.32 Chronic diastolic (congestive) heart failure; J96.11 Chronic respiratory failure with hypoxia; J44.9 Chronic obstructive pulmonary disease, unspecified; I11.0 Hypertensive heart disease with heart failure; I35.0 Nonrheumatic aortic (valve) stenosis; I48.92 Unspecified atrial flutter; E78.00 Pure hypercholesterolemia, unspecified; G62.9 Polyneuropathy, unspecified; K21.9 Gastro-esophageal reflux disease without esophagitis; Z99.81 Dependence on supplemental oxygen; Z87.891 Personal history of nicotine dependence; Z88.8 Allergy status to other drugs, medicaments and biological substances; Z79.899 Other long term (current) drug therapy
CPT/HCPCS: 36415; 71046; 80048; 80053; 80162; 83735; 83880; 84484; 85025; 94640; 96365; 96366; 96376; 99285-25; A9270

== ENCOUNTER 2018-12-04 19:26 | Emergency (ER) | payer MEDICARE, BC ==
[~2018-12-04] VITALS: Ht 162.6 cm; Wt 59.0 kg
[2018-12-04 19:45] LABS: BASOPHILS ABSOLUTE AUTO 0.07 K/mm3 (0.00-0.23); BASOPHILS PERCENT AUTO 1 % (0-2); EOSINOPHILS ABSOLUTE AUTO 0.36 K/mm3 (0.00-0.68); EOSINOPHILS PERCENT AUTO 4 % (0-6); Hematocrit 32.6 % (33.0-51.0); Hemoglobin 10.5 g/dL (11.5-16.0); IMMATURE GRAN ABSOLUTE AUTO 0.02 K/mm3 (0.00-0.10); IMMATURE GRAN PERCENT AUTO 0 % (0-1); LYMPHOCYTES ABSOLUTE AUTO 2.31 K/mm3 (0.84-5.20); LYMPHOCYTES PERCENT AUTO 27 % (21-46); MONOCYTES ABSOLUTE AUTO 0.85 K/mm3 (0.16-1.47); MONOCYTES PERCENT AUTO 10 % (4-13); Mean Corpuscular HGB 31.5 pg (26.0-34.0); Mean Corpuscular HGB Conc 32.2 g/dL (31.5-36.5); Mean Corpuscular Volume 98 fL (80-100); Mean Platelet Volume 8.8 fL (9.1-12.4); NEUTROPHILS ABSOLUTE AUTO 5.07 K/mm3 (1.96-9.15); NEUTROPHILS PERCENT AUTO 59 % (41-73); Platelet Count 514 K/mm3 (150-400); RDW Coefficient Variation 14.4 % (11.7-14.2); RDW Standard Deviation 51.9 fL (35.1-46.3); Red Blood Cell Count 3.33 M/mm3 (3.80-5.20); White Blood Cell Count 8.68 K/mm3 (4.00-11.30)
[2018-12-04 20:08] LABS: Alanine Aminotransfer (ALT/SGP 23 U/L (12-78); Albumin, Blood 3.2 g/dL (3.4-5.0); Albumin/Globulin Ratio 0.7 (0.8-1.8); Alk Phos 145 U/L (50-136); Anion Gap 3 mmol/L (6-16); Aspartate Aminotrans (AST/SGOT 21 U/L (12-37); Bilirubin, Total 0.2 mg/dL (0.1-1.0); Blood Urea Nitrogen 29 mg/dL (8-24); Bun/Creatinine Ratio 36.8 (12.0-20.0); CO2, Blood 30 mmol/L (21-32); Calcium, Blood 9.9 mg/dL (8.5-10.1); Chloride, Blood 96 mmol/L (98-108); Creatinine, Blood 0.79 mg/dL (0.40-1.00); Globulin, Blood 4.5 g/dL (2.2-4.0); Glomerular Filtration Rate >60 (60-); Glucose, Blood 112 mg/dL (70-99); Potassium, Blood 4.2 mmol/L (3.5-5.5); Sodium, Blood 129 mmol/L (136-145); Total Protein, Blood 7.7 g/dL (6.4-8.2)
== END 2018-12-04 22:41 | disposition home or self-care (01) ==
LOC: ER 19:26
PROVIDERS: Emergency Medicine
DX: I48.91 Unspecified atrial fibrillation (principal); E87.1 Hypo-osmolality and hyponatremia; J44.9 Chronic obstructive pulmonary disease, unspecified; Z87.891 Personal history of nicotine dependence; D64.9 Anemia, unspecified; Z87.01 Personal history of pneumonia (recurrent); Z88.8 Allergy status to other drugs, medicaments and biological substances; Z79.899 Other long term (current) drug therapy; Z79.01 Long term (current) use of anticoagulants; Z79.51 Long term (current) use of inhaled steroids
CPT/HCPCS: 36415; 71046; 80053; 85025; 93005; 93010; 96361; 96374; 99285-25; J7030

== ENCOUNTER 2018-12-06 04:41 | Emergency (ER) | payer MEDICARE, BC ==
[~2018-12-06] VITALS: Ht 160 cm; Wt 61.2 kg
[2018-12-06 06:41] LABS: BASOPHILS ABSOLUTE AUTO 0.07 K/mm3 (0.00-0.23); BASOPHILS PERCENT AUTO 1 % (0-2); EOSINOPHILS ABSOLUTE AUTO 0.36 K/mm3 (0.00-0.68); EOSINOPHILS PERCENT AUTO 5 % (0-6); Hematocrit 33.1 % (33.0-51.0); Hemoglobin 10.5 g/dL (11.5-16.0); IMMATURE GRAN ABSOLUTE AUTO 0.03 K/mm3 (0.00-0.10); IMMATURE GRAN PERCENT AUTO 0 % (0-1); LYMPHOCYTES ABSOLUTE AUTO 1.78 K/mm3 (0.84-5.20); LYMPHOCYTES PERCENT AUTO 23 % (21-46); MONOCYTES ABSOLUTE AUTO 0.74 K/mm3 (0.16-1.47); MONOCYTES PERCENT AUTO 10 % (4-13); Mean Corpuscular HGB 30.3 pg (26.0-34.0); Mean Corpuscular HGB Conc 31.7 g/dL (31.5-36.5); Mean Corpuscular Volume 96 fL (80-100); Mean Platelet Volume 9.1 fL (9.1-12.4); NEUTROPHILS PERCENT AUTO 61 % (41-73); Platelet Count 520 K/mm3 (150-400); RDW Coefficient Variation 14.5 % (11.7-14.2); Red Blood Cell Count 3.46 M/mm3 (3.80-5.20); White Blood Cell Count 7.68 K/mm3 (4.00-11.30)
[2018-12-06 07:02] LABS: Alanine Aminotransfer (ALT/SGP 24 U/L (12-78); Albumin, Blood 3.2 g/dL (3.4-5.0); Albumin/Globulin Ratio 0.7 (0.8-1.8); Alk Phos 152 U/L (50-136); Anion Gap 7 mmol/L (6-16); Aspartate Aminotrans (AST/SGOT 23 U/L (12-37); Bilirubin, Total 0.3 mg/dL (0.1-1.0); Blood Urea Nitrogen 27 mg/dL (8-24); Bun/Creatinine Ratio 36.1 (12.0-20.0); CO2, Blood 31 mmol/L (21-32); Calcium, Blood 9.7 mg/dL (8.5-10.1); Chloride, Blood 99 mmol/L (98-108); Creatinine, Blood 0.75 mg/dL (0.40-1.00); Globulin, Blood 4.4 g/dL (2.2-4.0); Glomerular Filtration Rate >60 (60-); Glucose, Blood 87 mg/dL (70-99); Potassium, Blood 3.8 mmol/L (3.5-5.5); Sodium, Blood 137 mmol/L (136-145); Total Protein, Blood 7.6 g/dL (6.4-8.2)
== END 2018-12-06 07:24 | disposition home or self-care (01) ==
LOC: ER 04:41
PROVIDERS: Emergency Medicine
DX: I48.91 Unspecified atrial fibrillation (principal); J44.9 Chronic obstructive pulmonary disease, unspecified; I10 Essential (primary) hypertension; Z87.01 Personal history of pneumonia (recurrent); Z87.891 Personal history of nicotine dependence; Z88.8 Allergy status to other drugs, medicaments and biological substances; Z79.01 Long term (current) use of anticoagulants; Z79.899 Other long term (current) drug therapy
CPT/HCPCS: 36415; 80053; 85025; 93005; 93010; 96374; 99285-25

== ENCOUNTER 2018-12-18 15:05 | Observation (INO) | payer MEDICARE, BC ==
[~2018-12-18] VITALS: Ht 165.1 cm; Wt 59.2 kg
[2018-12-18] MEDS ORDERED: NEBI5 PO (15:17)
[2018-12-18 15:40] LABS: BASOPHILS ABSOLUTE AUTO 0.06 K/mm3 (0.00-0.23); BASOPHILS PERCENT AUTO 1 % (0-2); EOSINOPHILS ABSOLUTE AUTO 0.35 K/mm3 (0.00-0.68); EOSINOPHILS PERCENT AUTO 3 % (0-6); Hematocrit 33.8 % (33.0-51.0); Hemoglobin 10.6 g/dL (11.5-16.0); IMMATURE GRAN ABSOLUTE AUTO 0.03 K/mm3 (0.00-0.10); IMMATURE GRAN PERCENT AUTO 0 % (0-1); LYMPHOCYTES ABSOLUTE AUTO 1.94 K/mm3 (0.84-5.20); LYMPHOCYTES PERCENT AUTO 19 % (21-46); MONOCYTES ABSOLUTE AUTO 0.83 K/mm3 (0.16-1.47); MONOCYTES PERCENT AUTO 8 % (4-13); Mean Corpuscular HGB 30.1 pg (26.0-34.0); Mean Corpuscular HGB Conc 31.4 g/dL (31.5-36.5); Mean Corpuscular Volume 96 fL (80-100); Mean Platelet Volume 9.3 fL (9.1-12.4); NEUTROPHILS ABSOLUTE AUTO 7.24 K/mm3 (1.96-9.15); NEUTROPHILS PERCENT AUTO 69 % (41-73); Platelet Count 478 K/mm3 (150-400); RDW Coefficient Variation 14.6 % (11.7-14.2); RDW Standard Deviation 50.5 fL (35.1-46.3); Red Blood Cell Count 3.52 M/mm3 (3.80-5.20); White Blood Cell Count 10.45 K/mm3 (4.00-11.30)
[2018-12-18 16:02] LABS: Alanine Aminotransfer (ALT/SGP 27 U/L (12-78); Albumin, Blood 3.3 g/dL (3.4-5.0); Albumin/Globulin Ratio 0.8 (0.8-1.8); Alk Phos 134 U/L (50-136); Anion Gap 7 mmol/L (6-16); Aspartate Aminotrans (AST/SGOT 44 U/L (12-37); Bilirubin, Total 0.3 mg/dL (0.1-1.0); Blood Urea Nitrogen 36 mg/dL (8-24); Bun/Creatinine Ratio 41.1 (12.0-20.0); CO2, Blood 29 mmol/L (21-32); Calcium, Blood 9.6 mg/dL (8.5-10.1); Chloride, Blood 101 mmol/L (98-108); Creatinine, Blood 0.88 mg/dL (0.40-1.00); Globulin, Blood 4.4 g/dL (2.2-4.0); Glomerular Filtration Rate >60 (60-); Glucose, Blood 113 mg/dL (70-99); Potassium, Blood 4.7 mmol/L (3.5-5.5); Sodium, Blood 137 mmol/L (136-145); Total Protein, Blood 7.7 g/dL (6.4-8.2)
[2018-12-18] MEDS ORDERED: ACET500 PO (18:57)
[2018-12-18] MEDS ORDERED: DILT120 PO (18:59)
[2018-12-18] MEDS ORDERED: CENTRUM SILVER1 EAC2 PO (19:00)
--- NOTE | 2018-12-18 23:16 | NUR ---
PATIENT ARRIVED TO PCU2 VIA GURNEY FROM ER, WALKED TO BED FROM [facility] WITH SBA. PATIENT ALERT AND ORIENTED, VSS. ADMISSION CAOMPLETED AND PATIENT ORIENTED TO ROOM, CALL LIGHT AND HOSPITAL POLICIES. SKIN C/D/I, BED LOW AND LOCKED AND CALL LIGHT WITHIN REACH
--- NOTE | 2018-12-19 05:23 | NUR ---
SHIFT SUMMARY: PATIENT INSISTED ON IV REMOVAL. EDUCATED PATIENT ON NECESSITY OF IV FOR MEDICATIONS AND EMERGENCY SITUATIONS, PATIENT STATES SHE DOES NOT CARE AND TO TAKE THE IV OUT. HR MAINTAINING IN 90'S TO 110 SINCE 0000, REMAINS ASYMPTOMATIC PER PATIENT. VSS, CALL LIGHT WITHIN REACH, BED LOW AND LOCKED.
--- NOTE | 2018-12-19 07:15 | NUR ---
INITIAL ASSESSMENT: Patient is awake and lying in bed watching TV. Patient is alert, anxious, and oriented. Patient denies pain at this time. HR Irreg, patient has chronic A-Fib. Rate has been running 90s-115 per telemetry. LS dim T/O, patient is on home dose of oxygen at 3l via NC. Biox WNL. BT+. Patient denies tenderness to light palpation. PPP. No edema present at this time. Patient is a little hypertensive, patient states this is normal, and that she is chronically anxious. Patient denies taking any medications for anxiety. Patient states she needs to "be out of here by 9 am at the latest." Patient goes onto say that she has an appointment at an EP office in [place] today that she has to make because it took so long to get. Patient reassured we would get her AM med to her and then call the doctor to see if she could be discharged by then. Patient states that she will be leaving AMA at 9 am even if the MD doesn't discharge her.
[2018-12-19 07:35] LABS: Hemoglobin 10.7 g/dL (11.5-16.0); Mean Corpuscular HGB 30.6 pg (26.0-34.0); Mean Corpuscular HGB Conc 31.5 g/dL (31.5-36.5); Mean Corpuscular Volume 97 fL (80-100); Mean Platelet Volume 9.1 fL (9.1-12.4); Platelet Count 482 K/mm3 (150-400); RDW Coefficient Variation 14.5 % (11.7-14.2); White Blood Cell Count 9.94 K/mm3 (4.00-11.30)
[2018-12-19 07:51] LABS: Anion Gap 5 mmol/L (6-16); Blood Urea Nitrogen 22 mg/dL (8-24); Bun/Creatinine Ratio 31.8 (12.0-20.0); CO2, Blood 29 mmol/L (21-32); Calcium, Blood 9.8 mg/dL (8.5-10.1); Chloride, Blood 101 mmol/L (98-108); Creatinine, Blood 0.69 mg/dL (0.40-1.00); Glomerular Filtration Rate >60 (60-); Glucose, Blood 89 mg/dL (70-99); Sodium, Blood 135 mmol/L (136-145)
--- NOTE | 2018-12-19 08:15 | NUR ---
AM med have been given. Called placed to Dr. Valdez to make sure he is aware the patient would like to leave by 9 am if possible. Patient is on the edge of the bed dressed and states she will call her to come and get her at 9am.
--- NOTE | 2018-12-19 08:30 | NUR ---
Dr. Valdez here to see the patient. He is agreeable the patient be discharged so that she can make her appointment.
--- NOTE | 2018-12-19 09:00 | NUR ---
Patient verbalizes understanding of discharge instructions. Patient to home with via WC.
== END 2018-12-19 09:09 | disposition home or self-care (01) ==
LOC: ER 15:05 → PCU 15:06
PROVIDERS: Emergency Medicine; Nurse Practitioner Acute Care; ADMIT Hospitalist
DX: I48.2 Chronic atrial fibrillation (principal); I35.0 Nonrheumatic aortic (valve) stenosis; J44.9 Chronic obstructive pulmonary disease, unspecified; J96.11 Chronic respiratory failure with hypoxia; I11.0 Hypertensive heart disease with heart failure; I50.32 Chronic diastolic (congestive) heart failure; E78.00 Pure hypercholesterolemia, unspecified; Z79.899 Other long term (current) drug therapy; Z88.8 Allergy status to other drugs, medicaments and biological substances; Z87.891 Personal history of nicotine dependence
CPT/HCPCS: 36415; 71045; 80048; 80053; 83735; 83880; 84484; 85025; 85027; 93005; 93010; 94640; 94760; 96361; 96374; 96375; 96376; 99285-25; G0378; J2060; J7030

== ENCOUNTER 2019-04-15 11:12 | Inpatient (IN) | payer MEDICARE, BC ==
[~2019-04-15] VITALS: Ht 165.1 cm; Wt 67.8 kg
[~2019-04-15 11:12] MED LIST changes: +ACET500 PO; +CENTRUM SILVER1 EAC2 PO
[2019-04-15] MEDS ORDERED: NEBI10 PO ×2 (11:45→11:48)
[2019-04-15] MEDS ORDERED: XARELTO15 MG PO (11:45)
[2019-04-15 12:21] LABS: BASOPHILS ABSOLUTE AUTO 0.04 K/mm3 (0.00-0.23); BASOPHILS PERCENT AUTO 0 % (0-2); EOSINOPHILS ABSOLUTE AUTO 0.29 K/mm3 (0.00-0.68); EOSINOPHILS PERCENT AUTO 3 % (0-6); Hematocrit 35.9 % (33.0-51.0); IMMATURE GRAN ABSOLUTE AUTO 0.04 K/mm3 (0.00-0.10); IMMATURE GRAN PERCENT AUTO 0 % (0-1); LYMPHOCYTES ABSOLUTE AUTO 1.35 K/mm3 (0.84-5.20); LYMPHOCYTES PERCENT AUTO 14 % (21-46); MONOCYTES ABSOLUTE AUTO 0.85 K/mm3 (0.16-1.47); MONOCYTES PERCENT AUTO 9 % (4-13); Mean Corpuscular HGB 30.8 pg (26.0-34.0); Mean Corpuscular HGB Conc 30.6 g/dL (31.5-36.5); Mean Corpuscular Volume 101 fL (80-100); Mean Platelet Volume 9.4 fL (9.1-12.4); NEUTROPHILS ABSOLUTE AUTO 7.14 K/mm3 (1.96-9.15); NEUTROPHILS PERCENT AUTO 74 % (41-73); Platelet Count 445 K/mm3 (150-400); RDW Coefficient Variation 15.6 % (11.7-14.2); RDW Standard Deviation 58.4 fL (35.1-46.3); Red Blood Cell Count 3.57 M/mm3 (3.80-5.20); White Blood Cell Count 9.71 K/mm3 (4.00-11.30)
[2019-04-15 12:34] LABS: Alanine Aminotransfer (ALT/SGP 36 U/L (12-78); Albumin, Blood 3.1 g/dL (3.4-5.0); Albumin/Globulin Ratio 0.6 (0.8-1.8); Alk Phos 158 U/L (50-136); Anion Gap 4 mmol/L (6-16); Aspartate Aminotrans (AST/SGOT 40 U/L (12-37); Bilirubin, Total 0.5 mg/dL (0.1-1.0); Blood Urea Nitrogen 34 mg/dL (8-24); CO2, Blood 32 mmol/L (21-32); Calcium, Blood 10.2 mg/dL (8.5-10.1); Chloride, Blood 102 mmol/L (98-108); Creatinine, Blood 0.83 mg/dL (0.40-1.00); Globulin, Blood 4.9 g/dL (2.2-4.0); Glomerular Filtration Rate >60 (60-); Glucose, Blood 81 mg/dL (70-99); Potassium, Blood 4.8 mmol/L (3.5-5.5); Sodium, Blood 138 mmol/L (136-145); Troponin I <0.015 ng/mL (0.000-0.040)
[2019-04-15] MEDS ORDERED: Klor-Con 1010 MEQ PO (16:46)
[2019-04-15] MEDS ORDERED: FERRO-TIME325 MG PO (16:47)
[2019-04-15] MEDS ORDERED: MAGOX 400400 MG PO (16:48)
[2019-04-15] MEDS ORDERED: ACET500 (22:14)
[2019-04-16 04:59] LABS: BASOPHILS ABSOLUTE AUTO 0.05 K/mm3 (0.00-0.23); BASOPHILS PERCENT AUTO 1 % (0-2); EOSINOPHILS ABSOLUTE AUTO 0.12 K/mm3 (0.00-0.68); EOSINOPHILS PERCENT AUTO 1 % (0-6); Hematocrit 34.6 % (33.0-51.0); Hemoglobin 10.8 g/dL (11.5-16.0); IMMATURE GRAN ABSOLUTE AUTO 0.04 K/mm3 (0.00-0.10); IMMATURE GRAN PERCENT AUTO 0 % (0-1); LYMPHOCYTES ABSOLUTE AUTO 1.28 K/mm3 (0.84-5.20); LYMPHOCYTES PERCENT AUTO 14 % (21-46); MONOCYTES ABSOLUTE AUTO 0.66 K/mm3 (0.16-1.47); MONOCYTES PERCENT AUTO 7 % (4-13); Mean Corpuscular HGB 30.7 pg (26.0-34.0); Mean Corpuscular HGB Conc 31.2 g/dL (31.5-36.5); Mean Platelet Volume 9.3 fL (9.1-12.4); NEUTROPHILS ABSOLUTE AUTO 6.91 K/mm3 (1.96-9.15); NEUTROPHILS PERCENT AUTO 76 % (41-73); Platelet Count 443 K/mm3 (150-400); RDW Coefficient Variation 15.4 % (11.7-14.2); RDW Standard Deviation 55.9 fL (35.1-46.3); Red Blood Cell Count 3.52 M/mm3 (3.80-5.20); White Blood Cell Count 9.06 K/mm3 (4.00-11.30)
[2019-04-16 05:00] LABS: Mean Corpuscular Volume 98 fL (80-100)
--- NOTE | 2019-04-16 05:18 | NUR ---
SHIFT SUMMARY- PT. ARRIVED FROM ED. A&O, ON 4L NC. DX'S OF AFIB W/RVR. HR IN THE 130'S. PT'S PCP DR. JEAN BAPTISTE CALLED THIS NURSE TO CONFIRM PT. HAD TAKEN SCHEDULED CARDIAC MEDS IN THE EVENING. PER PT. MEDS HAD BEEN TAKEN. PLACED A CALL BACK TO DR. JEAN BAPTISTE, INFORMED HR REMAINED IN THE 130'S AND BP ELEVATED. ORDER FOR 1X DOSE OF IV DIGOXIN GIVEN. PT. TOLERATED WELL, ASLEEP T/O MOST OF THE SHIFT. NO APPARENT DISTRESS NOTED. PER TELE CURRENT HR AT 88. PT. CALL LIGHT WITHIN REACH AND SIDE RAILS UP X2. WILL CONT TO MONITOR.
[2019-04-16 05:25] LABS: Alanine Aminotransfer (ALT/SGP 27 U/L (12-78); Albumin, Blood 2.8 g/dL (3.4-5.0); Albumin/Globulin Ratio 0.6 (0.8-1.8); Alk Phos 144 U/L (50-136); Anion Gap 6 mmol/L (6-16); Aspartate Aminotrans (AST/SGOT 22 U/L (12-37); Bilirubin, Total 0.6 mg/dL (0.1-1.0); Blood Urea Nitrogen 31 mg/dL (8-24); Bun/Creatinine Ratio 37.9 (12.0-20.0); CO2, Blood 29 mmol/L (21-32); Calcium, Blood 9.9 mg/dL (8.5-10.1); Chloride, Blood 102 mmol/L (98-108); Creatinine, Blood 0.82 mg/dL (0.40-1.00); Globulin, Blood 4.4 g/dL (2.2-4.0); Glomerular Filtration Rate >60 (60-); Glucose, Blood 88 mg/dL (70-99); Potassium, Blood 4.6 mmol/L (3.5-5.5); Sodium, Blood 137 mmol/L (136-145); Total Protein, Blood 7.2 g/dL (6.4-8.2)
--- NOTE | 2019-04-16 08:54 | NUR ---
PT REFUSES TO SEND HOME MEDS TO PHARMACY. PT DEMNDING TO KEEP MEDS IN ROOM IN HER POSESION.
--- NOTE | 2019-04-16 16:43 | NUR ---
SHIFT SUMMARY PT HAD AN INCREASE OF HEART RATE, DR. THAYER ORDERED ONE TIME DOSE DIGOXIN. PT REFUSED TO SEND ALL OF HOME MEDS TO PHARMACY AND STILL HAS THEM IN HER POSESION. PT BECAME VERG AGITATED WHEN SAFETY CONCERNS DISCUSSED ABOUT MEDS NOT BEING LOCKED UP. ENCOURAGED PT TO SEND MEDS WITH FAMILY. PT HAS ONLY COMPLIANED OF PAIN WITH MOVEMENT AND LIBRADO OTHERWISE. PT TOLRATED MEALS. PT HAS CALL LIGHT WITH IN REACH WILL COUNTINUE TO MONITOR AND REPORT TO NOC RN.
--- NOTE | 2019-04-17 05:46 | NUR ---
SHIFT SUMMARY ADMITTED FOR AFIB W/RVR AND SOB. FULL CODE. PLAN IS TO FOLLOW CARDIOLOGY RECOMMENDATIONS, NEB TX, CONTINUE BYSTOLIC AND DILTIAZEM. ON 4 LPM HERE, 3 LPM IS BASELINE AT HOME. ON TELEMETRY: AFLUTTER @ 85 BPM. ABLATION PROCEDURE SCHEDULED FOR 04/19/2019 IN [place]. 2 G LOW NA+ DIET. HX: CHF, AFIB, COPD, HTN, HYPERLIPIDEMIA, GERD, AORTIC VALVE STENOSIS, ANEMIA, DEPRESSION, ANXIETY.
--- NOTE | 2019-04-17 11:52 | NUR ---
AT ABOUT 1140 PATIENT WAS YELLING AT NURSE, SCREAMING THAT SHE "WANTED TO CHECK OUT." WHEN NURSE EDUCATED PATIENT ABOUT RISKS OF LEAVING AGAINST MEDICAL ADVICE, PATIENT CONTINUED TO YELL AND STATED THAT SHE WANTED HER PRESCRIPTIONS. THIS NURSE STATED TO PATIENT THAT SHE NEEDED TO WAIT FOR HER DOCTOR TO MAKE HIS ROUNDS. CHARGE NURSE IN ROOM. AT 1147 HEAD OF [employer] TECH CALLED TO NOTIFY NURSE THAT PATIENT HEART RATE IS AT 130. THIS NURSE IMMEDIATELY CALLED DR MORTON AND LEFT MESSAGE TO CALL BACK. AWAITING RETURN CALL AT THIS TIME. AT 1157 PT HR CONTINUES TO SUSTAIN AT 130.
--- NOTE | 2019-04-17 13:44 | NUR ---
ASSUMED CARE: PT TRANSFERRED FROM MEDICAL FLOOR AT 1315. NEW IV PLACED BY SUBASSEMBLER AND CARDIZEM GTT STARTED AT 10MG/HR FOR HR AFLUTTER IN 130S. CALL TO DR FRAIRE TO VERIFY THAT GEOGRAPHY HEAD WAS AWARE OF PT TRANSFER AND CARDIZEM GTT AND DOUBLE CHECKED ANTICOAGULATION ORDERS PER PHARMACIST REQUEST. WHILE SPEAKING WITH PT REGARDING HISTORY HR WAS REPORTED 80S-90S AFLUTTER. CARDIZEM GTT TITRATED TO 5MG/HR. CALL LIGHT IN REACH. NO FURTHER NEEDS OR CONCERNS.
--- NOTE | 2019-04-17 16:19 | NUR ---
TELEPHONE ORDERS TO TRANSFER PT TO PCU RECIEVED AT 1210. REPORT CALLED TO JONNATHAN MESA AT 1228 AND PT TRANSFERRED SHORTLY AFTER.
--- NOTE | 2019-04-17 18:03 | NUR ---
SHIFT SUMMARY: CARDIZEM GTT OFF SINCE 1521. HR 60S, AFIB AT THIS TIME. PLAN IS FOR ABLATION IN [place] ON MONDAY SO PT IS HOPING FOR DC TOMORROW. CARDIOLOGY AWARE PT TRANSFERRED AND WAS ON CARDIZEM GTT. NO NEW ORDERS
--- NOTE | 2019-04-17 21:47 | NUR ---
ASSUMED CARE APPROXIMATELY 1900; PT ALERT AND AGITATED; STATES STAFF DOES NOT KNOW ENOUGH TO HELP HER; DEMANDS SHE MUST TALK TO A WASHHOUSE HAND TONIGHT; PT REASSURED AND EDUCATED ON MONITORING PROCESS; PT TELEPHONED WASHHOUSE HAND ANSWERING SERVICE WHEN THIS RN WAS OUT OF THE ROOM; WASHHOUSE HAND PHONED BACK AND SPOKE W/ RN AND PT; PT EDUCATED ON TELE MONITORING BEING MORE ACCURATE THAN PERSONAL PULSE OX DEVICE; PT STATES SHE IS FEARFUL AND ANXIOUS TO MAKE IT TO ABLATION PROCEDURE SCHEDULED IN [place] ON MONDAY; ADDITIONAL REASSURANCE AND EDUCATION PROVIDED; EDUCATION GIVEN REGARDING ANXIETY; MEDS ON EMAR ATIVAN AND XANAX; PT DOES NOT WANT TO TAKE; PT IN AFLUTTER W/ HR 90-110; AFTER 2100 MEDS PT APPEARS MORE RELAXED; O2 SATS >94 ON 3 L NC; CALL LIGHT IN REACH; BED IN LOWEST POSITION
--- NOTE | 2019-04-18 06:10 | NUR ---
SHIFT SUMMARY PT A&O; SLEPT WELL IN BETWEEN INTERVENTIONS; PT DISTRACTED W/ CONVERSATION TO ALLEVIATE TENSION; HR REMAINED IN 60-70'S MUCH OF THE NIGHT; O2 SATS >94 ON 3L NC; PT HAD INCONTINENCE THIS AM AND PUT BLAME ON AID; PT DENIES CHEST PAIN; CALL LIGHT IN REACH; BED IN LOWEST POSITION; WILL CONTINUE TO MONITOR CLOSELY UNTIL HAND OFF TO DAY SHIFT RN.
--- NOTE | 2019-04-18 07:19 | NUR ---
ASSUMED CARE: PT RESTING QUIETLY AT THIS TIME. ALFUTTER ON TELE IN 60S. NO ACUTE NEEDS OR DISTRESS NOTED.
[2019-04-18] MEDS ORDERED: DIGOX250 MCG PO (14:02)
--- NOTE | 2019-04-18 14:40 | NUR ---
PT DC'D HOME. IV DC'D WNL. DISCUSSED FOLLOW UP APPOINTMENTS AND MEDS. INSTRUCTED TO CONTACT DRIVER MATERIAL HANDLER IN [place] FOR QUESTIONS ABOUT MEDS PRIOR TO ABLATION. ESCORTED OUT VIA WHEEL CHAIR. DENIED FURTHER QUESTIONS OR CONCERNS
== END 2019-04-18 15:42 | disposition home or self-care (01) | DRG 308 ==
LOC: ER 11:12 → MEDS 17:42 → PCU 04-17 12:52
PROVIDERS: Emergency Medicine; Family Medicine; ADMIT Internal Medicine
DX: I48.20 Chronic atrial fibrillation, unspecified (principal); I50.33 Acute on chronic diastolic (congestive) heart failure; J96.11 Chronic respiratory failure with hypoxia; I11.0 Hypertensive heart disease with heart failure; Z79.01 Long term (current) use of anticoagulants; J44.9 Chronic obstructive pulmonary disease, unspecified; K21.9 Gastro-esophageal reflux disease without esophagitis; Z99.81 Dependence on supplemental oxygen; E78.5 Hyperlipidemia, unspecified; D50.9 Iron deficiency anemia, unspecified
CPT/HCPCS: 36415; 71046; 80053; 83880; 84484; 85025; 93005; 93010; 94640; 94760; 96374; 99285-25; J1160

== ENCOUNTER 2020-04-02 10:29 | Day surgery (SDC) | payer MEDICARE, BC ==
[~2020-04-02] VITALS: Ht 162.6 cm; Wt 59.0 kg
[~2020-04-02 10:29] MED LIST changes: +ACET500; +BUDE.25 NEB; +CEFD300 PO; +DIGOX250 MCG PO; +FERRO-TIME325 MG PO; +Klor-Con 1010 MEQ PO; +MAGOX 400400 MG PO; +TRELEGY ELLIPT1 EACH INH
--- NOTE | 2020-04-02 11:13 | NUR ---
WOUND ON LEFT BIG TOE ON UNKNOWN ANTIBIOTIC SINCE MONDAY.
--- NOTE | 2020-04-02 11:45 | NUR ---
DR. ESPARZA HERE TO DISCUSS PROCEDURE WITH PATIENT.
--- NOTE | 2020-04-02 12:02 | NUR ---
TO CATERING [facility]ISTA FOR PROCEDURE.
--- NOTE | 2020-04-02 14:10 | NUR ---
RETURNED TO RECOVERY ROOM VIA BED.
--- NOTE | 2020-04-02 14:42 | NUR ---
patient resting comfortably. awakens and responds appropriatey. left groin site soft and non tender. right foot site dressing dry and intact. pulses to L PT and DP faint/dopler. R PT dopler.
--- NOTE | 2020-04-02 15:30 | NUR ---
dR Spring HERE TO FOLLOW UP WITH PATIENT AND ANSWER QUESTIONS.
--- NOTE | 2020-04-02 17:03 | NUR ---
Patient sitting at bedside. groin site and pedal site soft and non tender, noswelling or bleeding. Attepted site right PT with some blood oozing. pressure held and stable after 2 minutes. cloth dot applied. Discharge instructions and precautions given and patient verbalized understanding. stent cards given. patient taken to ride via wheelchair by Radu ANSARI.
== END 2020-04-02 17:00 | disposition home or self-care (01) ==
LOC: MHTC 10:29
DX: I70.213 Atherosclerosis of native arteries of extremities with intermittent claudication, bilateral legs (principal); I70.223 Atherosclerosis of native arteries of extremities with rest pain, bilateral legs; I70.245 Atherosclerosis of native arteries of left leg with ulceration of other part of foot; I70.235 Atherosclerosis of native arteries of right leg with ulceration of other part of foot; L97.529 Non-pressure chronic ulcer of other part of left foot with unspecified severity; L97.519 Non-pressure chronic ulcer of other part of right foot with unspecified severity; G62.9 Polyneuropathy, unspecified; I11.0 Hypertensive heart disease with heart failure; I48.19 Other persistent atrial fibrillation; I50.30 Unspecified diastolic (congestive) heart failure; M19.90 Unspecified osteoarthritis, unspecified site; I48.92 Unspecified atrial flutter; J44.9 Chronic obstructive pulmonary disease, unspecified; K21.9 Gastro-esophageal reflux disease without esophagitis; I25.2 Old myocardial infarction; Z88.8 Allergy status to other drugs, medicaments and biological substances; Z79.01 Long term (current) use of anticoagulants; Z79.899 Other long term (current) drug therapy; Z87.891 Personal history of nicotine dependence; Z99.81 Dependence on supplemental oxygen
CPT/HCPCS: 76937; 99152; 99153; C1714; C1725; C1760; C1769; C1874; C1876; C1887; C1894; C2623; J1644; J2250; J3010; J7030; J7040; J7050; Q9967

== ENCOUNTER 2020-04-30 10:01 | Day surgery (SDC) | payer MEDICARE, BC ==
[~2020-04-30] VITALS: Ht 162.6 cm; Wt 61.0 kg
[2020-04-30 10:43] LABS: BASOPHILS ABSOLUTE AUTO 0.06 K/mm3 (0.00-0.23); BASOPHILS PERCENT AUTO 1 % (0-2); EOSINOPHILS ABSOLUTE AUTO 0.27 K/mm3 (0.00-0.68); EOSINOPHILS PERCENT AUTO 3 % (0-6); Hematocrit 37.5 % (33.0-51.0); Hemoglobin 11.7 g/dL (11.5-16.0); IMMATURE GRAN ABSOLUTE AUTO 0.07 K/mm3 (0.00-0.10); IMMATURE GRAN PERCENT AUTO 1 % (0-1); LYMPHOCYTES ABSOLUTE AUTO 0.99 K/mm3 (0.84-5.20); LYMPHOCYTES PERCENT AUTO 10 % (21-46); MONOCYTES ABSOLUTE AUTO 0.75 K/mm3 (0.16-1.47); MONOCYTES PERCENT AUTO 7 % (4-13); Mean Corpuscular HGB 30.7 pg (26.0-34.0); Mean Corpuscular HGB Conc 31.2 g/dL (31.5-36.5); Mean Corpuscular Volume 98 fL (80-100); Mean Platelet Volume 8.7 fL (9.1-12.4); NEUTROPHILS ABSOLUTE AUTO 8.33 K/mm3 (1.96-9.15); NEUTROPHILS PERCENT AUTO 79 % (41-73); Platelet Count 492 K/mm3 (150-400); RDW Coefficient Variation 15.4 % (11.7-14.2); RDW Standard Deviation 54.8 fL (35.1-46.3); Red Blood Cell Count 3.81 M/mm3 (3.80-5.20); White Blood Cell Count 10.47 K/mm3 (4.00-11.30)
[2020-04-30 10:57] LABS: International Normalized Ratio 1.04; Prothrombin Time Results 11.1 Sec (9.7-11.5)
[2020-04-30 11:02] LABS: Bun/Creatinine Ratio 34.5 (12.0-20.0); Calcium, Blood 9.7 mg/dL (8.5-10.1); Creatinine, Blood 1.13 mg/dL (0.40-1.00); Potassium, Blood 4.8 mmol/L (3.5-5.5)
--- NOTE | 2020-04-30 15:38 | NUR ---
PT WITH C/O R GROIN PAIN. TYLENOL 650 MG GIVEN PO PER DR ORDER.
--- NOTE | 2020-04-30 16:13 | NUR ---
handoff report given to Radu RN, Radu to assume care of pt
--- NOTE | 2020-04-30 16:15 | NUR ---
ASSUMED CARE OF PT. PT AWAKE AND CONVERSING APPROPRIATELY; ABRASIVE AT TIMES. PT DENIES PAIN AT SITE. MONITOR AFIB 70'S, B/P 182/80, SPO2 98% 3L NC. PT REPORTS BEING CHRONICALLY SOB R/T COPD AND O2 DEPENDENT ON 3L NC. R GROIN SITE NO SWELLING/HEMATOMA, TEGADERM DRSG INTACT WITH SOME DRAINAGE PRESENT. BLE: 1+ PULSES X 2. PT DELCINED FOOD OR DRINKS WHEN OFFERED.
--- NOTE | 2020-04-30 16:25 | NUR ---
DR ESPARZA NOTIFIED OF PT'S CONTINUED ELEVATED B/P, ORDERS RECEIVED; ADMINISTERED 10 MG IV HYDRALAZINE. PT ASYMPTOMATIC WITH ELEVATED B/P.
--- NOTE | 2020-04-30 16:45 | NUR ---
PT'S B/P IMPROVED AFTER HYDRALAZINE. PT UNHAPPY WANTS TO DISCUSS LEG SWELLING WITH DR ESPARZA; BUT DR ESPARZA IN A CASE AND WILL NOT BE FINISHED BY TIME SHE NEEDS TO LEAVE (DIAL A RIDE PICKING PT UP A 17:00). PT INSTRUCTED TO CALL DR ESPARZA'S OFFICE MONDAY.
--- NOTE | 2020-04-30 16:55 | NUR ---
PT'S SITE REMAINS UNCHANGED, DRESSING CHANGED-NO OOZING FROM SITE; L FOOT DRESSING WAS CHANGED PER PT REQUEST. PT DRESSED WITH ASSISTANCE, SITE UNCHANGED; IV REMOVED-CANNULA INTACT. PT WAS OFFERRED TO USE RESTROOM (BSC) MULTIPLE TIMES PRIOR TO GETTING DRESSED, BUT DECLINED. STATES "I'LL GO WHEN I GET HOME".
--- NOTE | 2020-04-30 17:09 | NUR ---
PT RECEIVED DISCHARGE INSTRUCTIONS, MED LIST AND AFTER CARE INSTRUCTIONS; VERBALIZED GOOD UNDERSTANDING. PT WAS AGAIN INSTRUCTED TO CONTACT DR ESPARZA'S OFFICE MONDAY TO DISCUSS CHRONIC SWELLING ISSUES IN HER LEGS. PT LEFT FACILITY VIA W/C, CONDITION STABLE.
== END 2020-04-30 23:23 | disposition home or self-care (01) ==
LOC: MHTC 10:01
PROVIDERS: Radiology Diagnostic Radiology
DX: I70.213 Atherosclerosis of native arteries of extremities with intermittent claudication, bilateral legs (principal); L97.519 Non-pressure chronic ulcer of other part of right foot with unspecified severity; L97.529 Non-pressure chronic ulcer of other part of left foot with unspecified severity; I11.0 Hypertensive heart disease with heart failure; J44.9 Chronic obstructive pulmonary disease, unspecified; I48.92 Unspecified atrial flutter; K21.9 Gastro-esophageal reflux disease without esophagitis; I50.20 Unspecified systolic (congestive) heart failure; Z95.0 Presence of cardiac pacemaker; Z79.01 Long term (current) use of anticoagulants; Z87.891 Personal history of nicotine dependence
CPT/HCPCS: 37221; 37225; 37228; 75716; 75774; 80048; 85025; 85347; 85610; 99152; 99153; A9270; C1714; C1725; C1760; C1769; C1876; C1884; C1887; C1894; C2623; J0360; J1644; J2250; J3010; J7030; J7050; Q9967

== ENCOUNTER 2021-06-30 02:39 | Emergency (ER) | payer MEDICARE, BC ==
[2021-06-30] MEDS ORDERED: AMOCLA875 PO (06:24)
[2021-06-30 08:04] LABS: BASOPHILS ABSOLUTE AUTO 0.04 K/mm3 (0.00-0.23); BASOPHILS PERCENT AUTO 0 % (0-2); EOSINOPHILS ABSOLUTE AUTO 0.01 K/mm3 (0.00-0.68); EOSINOPHILS PERCENT AUTO 0 % (0-6); Hematocrit 34.6 % (33.0-51.0); Hemoglobin 10.7 g/dL (11.5-16.0); IMMATURE GRAN ABSOLUTE AUTO 0.14 K/mm3 (0.00-0.10); IMMATURE GRAN PERCENT AUTO 1 % (0-1); LYMPHOCYTES ABSOLUTE AUTO 0.44 K/mm3 (0.84-5.20); LYMPHOCYTES PERCENT AUTO 4 % (21-46); MONOCYTES ABSOLUTE AUTO 0.13 K/mm3 (0.16-1.47); MONOCYTES PERCENT AUTO 1 % (4-13); Mean Corpuscular HGB Conc 30.9 g/dL (31.5-36.5); Mean Corpuscular Volume 100 fL (80-100); Mean Platelet Volume 9.4 fL (9.1-12.4); NEUTROPHILS ABSOLUTE AUTO 10.84 K/mm3 (1.96-9.15); NEUTROPHILS PERCENT AUTO 94 % (41-73); Platelet Count 434 K/mm3 (150-400); RDW Coefficient Variation 15.2 % (11.7-14.2); RDW Standard Deviation 55.7 fL (35.1-46.3); Red Blood Cell Count 3.45 M/mm3 (3.80-5.20)
[2021-06-30] MEDS ORDERED: AFRIN15 M6 (08:56)
== END 2021-06-30 10:50 | disposition home or self-care (01) ==
LOC: ER 02:39
PROVIDERS: Student in an Organized Health Care Education/Training Program
DX: R04.0 Epistaxis (principal); D68.32 Hemorrhagic disorder due to extrinsic circulating anticoagulants; T45.515A Adverse effect of anticoagulants, initial encounter; I10 Essential (primary) hypertension; E78.00 Pure hypercholesterolemia, unspecified; J44.9 Chronic obstructive pulmonary disease, unspecified; Z79.899 Other long term (current) drug therapy
CPT/HCPCS: 36415; 85025; 86900; 86901; 94640; 94664; A9270; J7030; P9059

== ENCOUNTER → 2021-11-04 | Outpatient (CLI) | payer MEDICARE, BC ==
[~2021-11-04] MED LIST changes: +AFRIN15 M6; +AMOCLA875 PO
== END | disposition home or self-care (01) ==
LOC: LAB 16:42 → LAB SHORT 16:42
DX: N39.0 Urinary tract infection, site not specified (principal)
CPT/HCPCS: 87086

== ENCOUNTER → 2021-11-12 | Outpatient (CLI) | payer MEDICARE, BC ==
[2021-11-12 07:28] LABS: Source, Urine Clean Catch
[2021-11-12 10:22] LABS: Appearance, Urine Hazy (Clear); Bilirubin, Urine Neg (Neg); Blood, Urine Neg (Neg); Color, Urine Yellow (P-Yellow); Glucose Qualitative, Urine Neg (Neg); Ketones, Urine Neg (Neg); Leukocyte Esterase, Urine 3+ (Neg); Nitrite, Urine Neg (Neg); Protein, Urine 3+ (Neg); Urobilinogen, Urine NORM (Normal)
[2021-11-12 10:59] LABS: Bacteria Mod /hpf; Red Blood Cells, Urine 0-2 /hpf (0-2); Squamous Epithelial Cells Few /hpf (Few); White Blood Cells, Urine 25-50 /hpf (0-5); Yeast/Fungi Urine Many /hpf
== END | disposition home or self-care (01) ==
LOC: LAB 06:00 → LAB SHORT 06:00
PROVIDERS: Family Medicine
DX: N39.0 Urinary tract infection, site not specified (principal)
CPT/HCPCS: 81001

== ENCOUNTER 2022-03-30 23:47 | Emergency (ER) | payer MEDICARE, BC ==
[~2022-03-30] VITALS: Ht 165.1 cm; Wt 81.7 kg
[2022-03-31] MEDS ORDERED: Adult Glycerin1 EACH PR (01:32)
== END 2022-03-31 03:11 | disposition home or self-care (01) ==
LOC: ER 23:47
DX: K59.00 Constipation, unspecified (principal); I10 Essential (primary) hypertension; I48.91 Unspecified atrial fibrillation; J44.9 Chronic obstructive pulmonary disease, unspecified; Z88.8 Allergy status to other drugs, medicaments and biological substances; Z79.899 Other long term (current) drug therapy; Z79.01 Long term (current) use of anticoagulants; Z87.891 Personal history of nicotine dependence
CPT/HCPCS: A9270

== ENCOUNTER 2022-05-14 17:23 | Inpatient (IN) | payer MEDICARE, BC ==
[~2022-05-14] VITALS: Ht 162.6 cm; Wt 52.1 kg
[~2022-05-14 17:23] MED LIST changes: +Adult Glycerin1 EACH PR
[2022-05-14 17:45] LABS: Bicarbonate Venous 19.4 mmol/L (24.0-30.0); PCO2 Venous 37.1 mmHg (38-42); pH Blood Venous 7.34 (7.34-7.37)
[2022-05-14 18:10] LABS: Hematocrit 43.3 % (33.0-51.0); Hemoglobin 14.4 g/dL (11.5-16.0); Mean Corpuscular HGB Conc 33.3 g/dL (31.5-36.5); Mean Corpuscular Volume 99 fL (80-100); Mean Platelet Volume 10.4 fL (9.1-12.4); NRBC ABSOLUTE 0.02 K/mm3 (0.00-0.02); NRBC Auto 0.2 /100 WBC (0.0-0.2); Platelet Count 263 K/mm3 (150-400); RDW Coefficient Variation 15.6 % (11.7-14.2); RDW Standard Deviation 57.5 fL (35.1-46.3); Red Blood Cell Count 4.36 M/mm3 (3.80-5.20); White Blood Cell Count 9.58 K/mm3 (4.00-11.30)
[2022-05-14 18:17] LABS: Albumin, Blood 2.8 g/dL (3.4-5.0); Albumin/Globulin Ratio 0.8 (0.8-1.8); Bilirubin, Total 0.7 mg/dL (0.1-1.0); Calcium, Blood 9.4 mg/dL (8.5-10.1); Creatinine, Blood 1.08 mg/dL (0.40-1.00); Globulin, Blood 3.5 g/dL (2.2-4.0); Magnesium, Blood 2.2 mg/dL (1.6-2.4); Potassium, Blood 5.5 mmol/L (3.5-5.5); Total Protein, Blood 6.3 g/dL (6.4-8.2)
[2022-05-14 18:30] LABS: BAND PERCENT MAN 30 % (0-8); BASOPHILS PERCENT MAN 0 % (0-2); EOSINOPHILS PERCENT MAN 0 % (0-6); LYMPHOCYTES ABSOLUTE MAN 0.09 K/mm3 (0.84-5.20); LYMPHOCYTES PERCENT MAN 1 % (21-46); METAMYELOCYTE ABSOLUTE MAN 0.09 K/mm3 (0.00-0.00); METAMYELOCYTE PERCENT MAN 1 % (0-0); MONOCYTES PERCENT MAN 0 % (4-13); NEUTROPHILS ABSOLUTE MAN 9.38 K/mm3 (1.96-9.15); SEG NEUTROPHILS PERCENT MAN 68 % (41-73); TOTAL CELLS COUNTED 100
[2022-05-14 18:35] LABS: Influenza A, PCR NEGATIVE (NEGATIVE); Influenza B, PCR NEGATIVE (NEGATIVE); Resp Syncytial Virus, PCR NEGATIVE (NEGATIVE); SARS-Cov-2 (COVID-19) PCR, MMC NEGATIVE (NEGATIVE)
[2022-05-14 20:26] LABS: Base Excess Venous -0.9 mmol/L; Bicarbonate Venous 23.7 mmol/L (24.0-30.0); PCO2 Venous 39.7 mmHg (38-42); pH Blood Venous 7.39 (7.34-7.37)
--- NOTE | 2022-05-14 21:48 | NUR ---
ARRIVAL TO ICU PT BROUGHT TO ICU AT THIS TIME. SHE IS ON BIPAP 18/8 WITH FIO2 95%. PT TACHYPNEIC WITH RATE 40S-50S. SPO2 90-94%. LUNGS DIMINISHED THROUGHOUT. PT VERY RESTLESS AND ANXIOUS. DESATS WITH EXCERTION AND DISCUSSION. HOSPITALIST NOTIFIED AND ORDERS RECEIVED PER EMAR.
--- NOTE | 2022-05-14 22:15 | NUR ---
UPDATE PT CONTINUES TO EXPRESS FEELING ANXIOUS AND RESTLESS. SHE STS "I FEEL LIKE I'M GOING TO ", "I CAN'T BREATHE", "I CAN'T TAKE THIS". SHE IS TACHYPNEIC WITH RATE IN 40S-50S ON THE BIPAP. SHE REQUESTS TO REMOVE MASK. PT EDUCATED ON NECESSITY FOR BIPAP AND PT AGREES TO KEEP IT ON. HOSPITALIST NOTIFIED AND MEDICATED PER EMAR.
[2022-05-14 23:31] LABS: Source, Urine Foley catheter
[2022-05-14 23:34] LABS: Bilirubin, Urine Neg (Neg); Blood, Urine Neg (Neg); Glucose Qualitative, Urine Neg (Neg); Ketones, Urine Neg (Neg); Leukocyte Esterase, Urine 1+ (Neg); Nitrite, Urine Neg (Neg); Protein, Urine 4+ (Neg); Specific Gravity, Urine 1.015 (1.003-1.022); Urobilinogen, Urine NORM (Normal)
[2022-05-14 23:38] LABS: Color, Urine Yellow (P-Yellow)
[2022-05-14 23:40] LABS: Appearance, Urine Clear (Clear); Red Blood Cells, Urine Not Seen /hpf (0-2); Squamous Epithelial Cells Not Seen /hpf (Few); White Blood Cells, Urine 0-2 /hpf (0-5)
[2022-05-14 23:41] LABS: Amorphous Mod (0-Heavy); Bacteria Rare /hpf
[2022-05-14 23:55] LABS: PCO2 Arterial 33.8 mmHg (35-45); PO2 Arterial 68.3 mmHg (80-100); pH Blood Arterial 7.32 (7.35-7.45)
--- NOTE | 2022-05-15 | NUR ---
UPDATE PT CONTINUES TO FEEL ANXIOUS AND RESTLESS DESPITE VERSED. PT REQUESTING MORE MEDICATION AND DIFFERENT BIPAP MASK. RT NOTIFIED AND AT BEDSIDE. ABG DONE. HOSPITALIST NOTIFIED OF RESULTS. ORDER RECEIVED FOR BLOOD WORK AND HALDOL. PT APPEARS MORE COMFORTABLE AT THIS TIME. SHE REMAINS TACHYPNEIC WITH RATE IN 30S.
--- NOTE | 2022-05-15 01:55 | NUR ---
PROVIDER CALLED & AT BEDSIDE HOSPITALIST CALLED AT 0155 TO UPDATE ON PT'S CONDITION AND LAB RESULTS. PT UNRESPONSIVE TO STERNAL RUB, PUPILS 3MM AND FIXED. HR 70 IN PACED RHYTHM, FEMORAL PULSE AUDIBLE WITH DOPPLER. PT BECOMING HYPOTENSIVE WITH MAP TRENDING DOWN TO 40S. DR NUNEZ AT BEDSIDE AND RECEIVED MULTIPLE MED ORDERS. WHILE ADMINISTERING BICARB, UNABLE TO OBTAIN DOPPLER PULSES. DR NUNEZ PRONOUNCED TIME OF AT 0219.
[2022-05-15 01:56] LABS: Albumin, Blood 2.2 g/dL (3.4-5.0); Albumin/Globulin Ratio 0.6 (0.8-1.8); Bilirubin, Total 0.7 mg/dL (0.1-1.0); Bun/Creatinine Ratio 42.1 (12.0-20.0); Calcium, Blood 8.7 mg/dL (8.5-10.1); Creatinine, Blood 1.45 mg/dL (0.40-1.00); Globulin, Blood 3.4 g/dL (2.2-4.0); Potassium, Blood 7.3 mmol/L (3.5-5.5); Total Protein, Blood 5.6 g/dL (6.4-8.2)
== END 2022-05-15 02:19 | DRG 871 ==
LOC: ER 17:23 → ICUE 21:32 → ICUW 21:32 → ICUE 21:51
PROVIDERS: Student in an Organized Health Care Education/Training Program; ADMIT Internal Medicine
PROC: 3E03329 Introduction of Other Anti-infective into Peripheral Vein, Percutaneous Approach (ICD-10-PCS; principal; 2022-05-14)
PROC: 4A133R1 Monitoring of Arterial Saturation, Peripheral, Percutaneous Approach (ICD-10-PCS; 2022-05-14)
PROC: 5A09357 Assistance with Respiratory Ventilation, Less than 24 Consecutive Hours, Continuous Positive Airway Pressure (ICD-10-PCS; 2022-05-14)
DX: A41.9 Sepsis, unspecified organism (principal); J18.9 Pneumonia, unspecified organism; J96.21 Acute and chronic respiratory failure with hypoxia; J44.1 Chronic obstructive pulmonary disease with (acute) exacerbation; I50.32 Chronic diastolic (congestive) heart failure; J44.0 Chronic obstructive pulmonary disease with (acute) lower respiratory infection; R65.20 Severe sepsis without septic shock; Z66 Do not resuscitate; I11.0 Hypertensive heart disease with heart failure; Z51.5 Encounter for palliative care; Z20.822 Contact with and (suspected) exposure to COVID-19; M19.90 Unspecified osteoarthritis, unspecified site; G62.9 Polyneuropathy, unspecified; I48.91 Unspecified atrial fibrillation; E78.00 Pure hypercholesterolemia, unspecified; Z99.81 Dependence on supplemental oxygen; Z87.01 Personal history of pneumonia (recurrent); Z90.89 Acquired absence of other organs; Z98.890 Other specified postprocedural states; Z87.891 Personal history of nicotine dependence; Z88.8 Allergy status to other drugs, medicaments and biological substances; Z79.899 Other long term (current) drug therapy
CPT/HCPCS: 0241U; 36415; 36600; 51702; 71045; 80053; 81001; 82803; 83605; 83735; 83880; 84145; 84484; 85025; 87040; 87077; 87186; 93005; 93010; 94640; 94644; 94645; 94660; 94664; 96365; 96366; 96367; 96372-59; 96375; 99291-25; J0692; J0696; J1630; J1650; J1815; J1940; J1956; J2250; J2930; J7030; J7050